=== PATIENT | female | born 1955 | race Caucasian/White ===

== ENCOUNTER 2023-12-04 16:18 | Inpatient (IN) | payer MEDICARE, BC, SELFPAY ==
[2023-12-04] VITALS (12 sets, daily range): BP systolic 117–142; BP diastolic 54–80; BMI 31.5
[2023-12-04 11:40] LABS: % Basophils 0.3 % (0-2); % Immature Granulocytes 0.8 % (0-0.5); % Lymphocytes 2.6 % (20.5-51.1); % Monocytes 6.8 % (1.7-9.3); % Neutrophils 89.5 % (42.2-75.2); Absolute Basophils 0.1 10^3/uL (0-0.2); Absolute Immature Granulocytes 0.2 10^3/uL (0-0.05); Absolute Lymphocytes 0.6 10^3/uL (1.2-3.4); Absolute Monocytes 1.6 10^3/uL (0.1-0.6); Absolute Neutrophils 20.7 10^3/uL (1.4-6.5); Hematocrit 37.5 % (37.0-47.0); Hemoglobin 13.6 g/dL (12.0-16.0); Mean Corp Hgb Conc. 36.3 g/dL (33.0-37.0); Mean Corpuscular Hgb 32.4 pg (27.0-31.0); Mean Corpuscular Volume 89.3 fL (81.0-99.0); Mean Platelet Volume 11.8 fL (7.4-10.4); Nucleated Red Blood Cells % 0 %; Platelet Count 174 10^3/uL (130-400); Red Cell Dist. Width 11.7 % (11.5-14.5); White Blood Cell Count 23.1 10^3/uL (4.8-10.8)
[2023-12-04 11:54] LABS: ALT (SGPT) 47 U/L (0-35); AST (SGOT) 54 U/L (14-36); Albumin 4.1 g/dl (3.5-5.0); Alkaline Phosphatase 108 U/L (38-126); Blood Urea Nitrogen 18 mg/dl (7-17); Calcium 8.7 mg/dl (8.4-10.2); Carbon Dioxide 21 mmol/L (22-30); Chloride 96 mmol/L (98-107); Glucose 210 mg/dl (70-99); Lipase 157 U/L (23-300); Potassium 3.9 mmol/L (3.5-5.1); Sodium 126 mmol/L (135-145); eGFR 45.07
[2023-12-04 11:58] LABS: Lactic Acid 1.4 mmol/L (0.7-2.0)
--- NOTE | 2023-12-04 12:58 | ED.GENMED ---
History of Present Illness
General
Chief Complaint: Abdominal Symptoms
Source: patient
Time Seen by Provider: 12/04/23 12:34
Travel History
Have you had any contact with someone who has COVID-19?: No
Do you have any symptoms of coronavirus? Fever > 100 degrees, chills, cough, shortness of breath, sore throat, loss of taste or smell, muscle aches, or headache?: No
History of Present Illness
History of Present Illness:
68-year-old female presents to the emergency room complaining of a weeks worth of nausea, vomiting, intermittent abdominal pain. Patient has a history of Crohn's disease. She has been taking Stelara without complications therefore had to stop it.
She has not started her new medication yet. Patient has been unable to tolerate much oral intake. She denies any diarrhea. She has had a fever up to 101. Patient was seen at an urgent care and referred to the emergency room. She tested negative
for COVID and flu while at the urgent care.
Phy Exam
Physical Exam
Physical Exam:
General: Awake, Alert, Oriented X3. No acute distress.
Vitals: unremarkable
Head: Atraumatic
Eyes: Pupils equal, EOMI
Throat: Airway intact, no exudates mildly dehydrated
Neck: Trachea midline
Lungs: Clear and equal b/l
Heart: Regular rate, no murmurs
Abd: Soft, no significant tenderness to palpation, No pulsatile mass
Neuro: Nonfocal
Skin: Warm, dry, no rash
Extremities: pulses equal b/l, no edema
Course
Orders/Labs/Results
Orders:
Orders
12/04/23 11:23
Complete Blood Count/With Diff Urgent
Comprehensive Metabolic Panel Urgent
Lactic Acid Urgent
Lipase Urgent
12/04/23 12:55
0.9% Sodium Chloride 500 ml [Nss] 500 ml IV BOLUS
12/04/23 12:57
CT Abd/pel Without Iv Or Oral Urgent
Comment:
Reason For Exam: abd pain, n/v WBC 22, hx of Crohn's
12/04/23 13:18
Osmolality, Random Urine Urgent
Date Specimen was Collected: 12/04/23
Time Specimen was Collected: 13:16
Urinalysis Reflex To Culture Urgent
Date Specimen was Collected: 12/04/23
Time Specimen was Collected: 13:16
Urine Microscopic Reflex Cult Urgent
Urine Sodium Urgent
Date Specimen was Collected: 12/04/23
Time Specimen was Collected: 13:16
Urine Culture Urgent
[facility] Source: U
Specimen Description:
Date Specimen was Collected: 12/04/23
Time Specimen was Collected: 13:16
12/04/23 14:13
CefTRIAXone [Rocephin] 1,000 mg IV NOW STA
12/04/23 15:06
Gentamicin Sulfate [Gentamicin] 120 mg 0.9% Sodium Chloride [Nss] 50 ml IV NOW
12/04/23 15:57
Admit/Transfer Patient As Directed
Co-Sign Provider:
Level of Care: Inpatient admission
Assign to:: Medical/Surgical
Physician / Group: debbie cordova
Diagnosis: ureteral stones
Reason for Hospitalization: ureteral stone
Expected length of stay greater than two midnights?: Yes
ELOS- Estimated Length of Stay in days: 3
I certify the patient meets the requirements for IP care: Yes
12/04/23 15:58
Code Status As Directed
Resuscitation Status: Full Code
12/04/23 16:16
Dexamethasone Sod Phosphate [Decadron] 20 mg .ROUTE .STK-MED ONE
Lidocaine HCl/Pf [Xylocaine-Mpf 1% Vial] 50 mg .ROUTE .STK-MED ONE
Ondansetron Injectable [Zofran] 4 mg .ROUTE .STK-MED ONE
Propofol [Diprivan] 20 ml .ROUTE .STK-MED
12/04/23 16:45
Blood Culture Q30M
[facility] Source: Blood/Venous
Specimen Description:
12/04/23 17:10
0.9% Sodium Chloride 1000 ml [Nss] 1,000 ml IV 80 mls/hr
Acetaminophen [Tylenol] 650 mg PO Q4HPRN PRN
12/04/23 17:10
Activity As Directed
Activity Level: As Tolerated
Pneumatic Compression Sleeves As Directed
Type: Knee high
Strain Urine As Directed
Vital Signs As Directed
Frequency: Per unit guidelines
DX Deep Vein Thrombosis Video Routine
12/04/23 18:31
Blood Culture Q30M
[facility] Source: Blood/Venous
Specimen Description:
12/04/23 21:00
BMP [Basic Metabolic Panel] Routine
12/05/23 06:00
Complete Blood Count/No Diff IN AM
Comprehensive Metabolic Panel IN AM
Hemoglobin A1c [Glycohemoglobin (HgbA1c)] IN AM
12/05/23 08:00
Atorvastatin [Lipitor] 10 mg PO DAILY
Bupropion(24Hr)Extended Releas [WELLBUTRIN XL (24 hour extended release)] 150 mg PO DAILY
Pantoprazole [Protonix] 40 mg PO DAILY
Sertraline HCl [Zoloft] 25 mg PO DAILY
Valacyclovir HCl [Valtrex] 500 mg PO DAILY
12/05/23 16:00
CefTRIAXone [Rocephin] 1,000 mg IV Q24H
12/06/23 06:00
Complete Blood Count/No Diff IN AM
Comprehensive Metabolic Panel IN AM
12/07/23 06:00
Complete Blood Count/No Diff IN AM
Comprehensive Metabolic Panel IN AM
12/08/23 06:00
Complete Blood Count/No Diff IN AM
Comprehensive Metabolic Panel IN AM
12/09/23 06:00
Complete Blood Count/No Diff IN AM
Comprehensive Metabolic Panel IN AM
Abnormal Lab Results
12/04/23 12/04/23
11:23 13:18
WBC 23.1 H 10^3/uL
(4.8-10.8)
MCH 32.4 H pg
(27.0-31.0)
MPV 11.8 H fL
(7.4-10.4)
Abs Immat Gran (auto) 0.2 H 10^3/uL
(0-0.05)
Absolute Neuts (auto) 20.7 H 10^3/uL
(1.4-6.5)
Absolute Lymphs (auto) 0.6 L 10^3/uL
(1.2-3.4)
Absolute Monos (auto) 1.6 H 10^3/uL
(0.1-0.6)
Immature Gran % 0.8 H %
(0-0.5)
Neutrophils % 89.5 H %
(42.2-75.2)
Lymphocytes % 2.6 L %
(20.5-51.1)
Sodium 126 L mmol/L
(135-145)
Chloride 96 L mmol/L
(98-107)
Carbon Dioxide 21 L mmol/L
(22-30)
BUN 18 H mg/dl
(7-17)
Creatinine 1.3 H mg/dL
(0.6-1.0)
Glucose 210 H mg/dl
(70-99)
Total Bilirubin 2.0 H mg/dl
(0.2-1.3)
AST 54 H U/L
(14-36)
ALT 47 H U/L
(0-35)
Urine Ketones 1+ A
(Negative)
Ur Occult Blood Reflex 3+ A
(Negative)
Urine Bilirubin 1+ A
(Negative)
Urine Urobilinogen 3+ A
(Neg - 1+)
Leukocyte Esterase Rfl 2+ A
(Negative)
Urine WBC (Reflex) >100 A /HPF
(0-5)
Urine Sodium 23 L mmol/L
(30-90)
Urine Albumin (Reflex) 1+ A
(Neg - Trace)
12/04/23 11:23
12/04/23 11:23
Vital Signs
Initial and Last Documented VS:
Initial Vital Signs
Temp Pulse Resp BP Pulse Ox
99.0 F 100 16 125/80 98
12/04/23 11:10 12/04/23 11:10 12/04/23 11:10 12/04/23 11:10 12/04/23 11:10
Last Documented Vital Signs
Temp Pulse Resp BP Pulse Ox
100.7 F H 90 18 142/73 95
12/04/23 18:19 12/04/23 18:19 12/04/23 18:19 12/04/23 18:19 12/04/23 18:19
MDM/Problems Addressed
Differential Diagnosis Includes:
UTI, Crohn's exacerbation, kidney stone
MDM/Problems Addressed:
Patient presents with fever, abdominal pain, nausea vomiting. Urine is positive for greater than 100 WBCs per high-power field. CBC shows a white count of 23,000. CT shows stone proximal right ureter. Case discussed with Dr. Berry who is
on-call for urology. He will take the patient to the operating room the next at 1 point. Broad-spectrum antibiotics initiated. Patient be admitted to the hospital service.
*Radiology
Radiology exam reviewed: radiology read reviewed
*Pulse Oximetry
Patient hypoxic: no
*Critical Care Note
Total Time (30-74mins, 75-104mins- exclusive of procedures): 35 min
comment:
Critical care statement: A total of 35 minutes of critical care time was provided for this patient. This includes management of unstable vital signs, evaluation of the patient at bedside, reviewing the patient's pertinent medical records, discussion
with consultants, review of old EKGs and review of pertinent medical records. This time with separate from time utilized to perform the aforementioned documented procedures
ED Attending Note
-
Portions of this chart may have been created with voice recognition software.� Occasional wrong word or��sound alike� substitutions may have occurred due to the inherent limitations of voice recognition software.
Discharge Plan
Departure
Patient Disposition: Admit
Date of Disposition: 12/04/23
Time of Disposition: 15:05
Admit to: Med/Surg
Presentation/result/management discussed w/ accepting MD/DO: Hospitalist
Condition: Fair
Discharge Problem:
Kidney stone on right side, Pyelonephritis
Interventions
Interventions:
*Risk Screen - Suicide Last Done: 12/04/23 13:14
*General Assessment Last Done: 12/04/23 13:14
*Neglect/Abuse Screening Last Done: 12/04/23 13:14
ED- Fall Risk Assessment Last Done: 12/04/23 13:14
*ED COVID-19 Vaccine History Last Done: 12/04/23 11:10
*Nursing Disposition Last Done: 12/04/23 16:10
YS-Mjomoz-Pdvkgfiubi Assessment Last Done: 12/04/23 13:14
Discharge Date and Time
Discharge Date/Time: 12/04/23 16:10
[2023-12-04] MEDS: NSS 500 IV (13:13)
[2023-12-04 13:26] LABS: Urine Albumin 1+ (Neg - Trace); Urine Bilirubin 1+ (Negative); Urine Character Slightly Cloudy (Clear); Urine Color Yellow; Urine Glucose Negative (Negative); Urine Ketone 1+ (Negative); Urine Leukocyte 2+ (Negative); Urine Nitrite Negative (Negative); Urine Occult Blood 3+ (Negative); Urine Specific Gravity 1.025 (<1.030); Urine Urobilinogen 3+ (Neg - 1+)
[2023-12-04 13:38] LABS: Osmolality Urine 782 mOsm/kg (300-900)
[2023-12-04 13:44] LABS: Urine Sodium 23 mmol/L (30-90)
[2023-12-04 13:53] LABS: Urine White Cell >100 /HPF (0-5)
[2023-12-04] MEDS: ROCEPHIN 1000 MG IV (15:24)
--- NOTE | 2023-12-04 15:38 | HPS.HSE ---
Addendum entered and electronically signed by Jp Hernández MD 12/05/23 11:34:
I saw and examined the patient.
The SURGICAL FORCE[employer] FABRICATOR or PA's note was reviewed and I agree with the note.
Comment:
Patient is 68 years old female past medical history of Crohn's(on IC and biologics), hyperlipidemia, depression, nephrolithiasis in the past, bladder ulcer fulgurated in the past, presented to the hospital abdominal pain nausea and vomiting
associated with fevers.� Patient has been having abdominal pain moderate intensity and intermittent in nature associated with nausea and vomiting and also had a fever up to 101 Fahrenheit.� She went to urgent care and she was sent over to the ER
hospital.� In the ED, white blood cell count 23,000, creatinine 1.3, lactic acid 1.4, sodium 126, increased LFTs,, urinalysis with WBC more than 100.� CT scan with 4.6 mm calculus in the proximal right ureter.� Urologist consulted.� She was referred
to hospitalist for further evaluation.
Physical exam:
General: Acutely ill but non toxic looking
HEENT: Normocephalic, Atraumatic and Moist Mucous Membranes
Respiratory: Clear to Auscultation; Negative Wheezes, Rales or Rhonchi
Cardiac: Regular Rhythm and S1/S2
GI: Soft, Tender right quadrant and Nondistended
Musculoskeletal: No Clubbing, No Cyanosis and No Edema
Neuro: Awake, Alert and Oriented
Psych: Calm
A/P:
Probable sepsis due to obstructive right ureteral stone with acute kidney injury and hyponatremia and hyperglycemia--> keep n.p.o., IV fluids, IV antibiotics, obtain blood cultures, recheck sodium levels, urology consulted.� Will give further
recommendations based on her clinical course.
Addendum Dictated by:�Jp Hernández MD
Addendum Dictated Date & Time:�12/04/23
Addendum Co-Signer:�Jp Hernández MD
Addendum Co-Sign Date & Time:12/04/231620
Addendum Signed by:�Jp Hernández MD
Addendum Signed Date & Time:�12/04/23 1621
Original Note:
Family Physician
-
Family Physician: * NONE
Chief Complaint
-
abdominal pain, n,v,
History of Present Illness
68-year-old female with past medical history for Crohn's disease, diverticulitis, kidney stones presented to us with epigastric abdominal pain associate with nausea and vomiting since Friday. She had a fever of 101. She was taking Tylenol as
needed with some relief in her symptoms. She was not tolerating any oral intake. Patient was not voiding much. Patient denied dysuria or hematuria. Stated some headache. Denied dizziness or syncopal episode. Patient denied chest pain or short
of breath.
CT with 4.6 mm right ureteral calculus. Patient received dose of antibiotics in the ER. Admitting for further management
Medical History
Past Medical History
Past Medical History: Reports Other
Additional Past Medical History:
Chron's disease
Diverticulitis
Kidney stones
Past Surgical History: Reports Other
Additional Past Surgical History:
Bowel resection
Social History
Tobacco: Non-smoker
Alcohol: None
Drug: None
Personal: Single
Living: Alone
Employment: Retired
Family History
Family History: Not pertinent
Allergies / Home Medications
Allergies reflects when Allergies were last updated in [facility].
Home Medications with original date entered in [facility]
Allergy/Medication List:
Allergies
Allergy/AdvReac Type Severity Reaction Status Date / Time
.paper tape Allergy Unknown Uncoded 12/04/23 11:14
Home Medications
atorvastatin 10 mg tablet 10 mg PO DAILY High Cholesterol 12/04/23
bupropion HCl 150 mg 24 hr tablet, extended release 150 mg PO DAILY Mental Health 12/04/23
cholecalciferol (vitamin D3) 25 mcg (1,000 unit) tablet (Vitamin D3) 25 mcg PO DAILY Supplement 12/04/23
cyanocobalamin (vitamin B-12) 100 mcg tablet (Vitamin B-12) 100 mcg PO DAILY Supplement 12/04/23
denosumab 60 mg/mL subcutaneous syringe (Prolia) 60 mg SC [id number] bone health 12/04/23
esomeprazole magnesium 40 mg capsule,delayed release 40 mg PO DAILY Gastrointestinal Issue 12/04/23
sertraline 25 mg tablet 25 mg PO DAILY Mental Health 12/04/23
ustekinumab 45 mg/0.5 mL subcutaneous solution (Stelara) 90 mg SC . DIRECTED Crohn's disease 12/04/23
valacyclovir 500 mg tablet 500 mg PO DAILY infection prevention 12/04/23
Review of Systems
-
Constitutional: Reports No Symptoms
EENT: Reports No Symptoms
Respiratory: Reports No Symptoms
Cardiac: Reports No Symptoms
Abdomen/GI: Reports Abdominal Pain, Nausea and Vomiting
: Reports No Symptoms
Musculoskeletal: Reports No Symptoms
Skin: Reports No Symptoms
Neurological: Reports No Symptoms
Endocrine: Reports No Symptoms
Hematologic/Lymphatic: Reports No Symptoms
Psych: Reports No Symptoms
Physical Exam
Vital Signs
Vital Signs
Temp Pulse Resp BP Pulse Ox
99.0 F 87 15 140/73 97
12/04/23 11:10 12/04/23 14:45 12/04/23 14:45 12/04/23 13:00 12/04/23 14:45
Physical Exam
General: Well Developed, Well Nourished and No Apparent Distress
HEENT: NormoCephalic, Moist mucous membranes and Atraumatic
Respiratory: Clear
Cardiac: S1/S2 and Regular Rhythm; No Murmur or Rub
GI: Soft, Non Tender, Non Distended and Normal Bowel Sounds; No Organomegaly
Rectal: Deferred by Provider
Musculoskeletal: No Clubbing, No Cyanosis and No Edema
Skin: No Rash
Neuro: AO x 3 and Nonfocal/grossly intact
Psych: Calm
Laboratory Results
-
12/04/23 11:23
12/04/23 11:23
Laboratory Results
Lactic Acid 1.4 mmol/L (0.7-2.0) 12/04/23 11:23
Total Bilirubin 2.0 mg/dl (0.2-1.3) H 12/04/23 11:23
AST 54 U/L (14-36) H 12/04/23 11:23
ALT 47 U/L (0-35) H 12/04/23 11:23
Alkaline Phosphatase 108 U/L (38-126) 12/04/23 11:23
Lipase 157 U/L (23-300) 12/04/23 11:23
Data Reviewed
-
CT Scan: Report Reviewed by me
Lab Data: Labs Reviewed by me
Impression/Plan
-
# Nausea/vomiting/fever and right abdominal pain likely from right ureter calculus
#UTI
-WBC 23.1
-CT abdomen pelvis with 4.6 mm calculus in the proximal right ureter. Secondary obstructive uropathy.Cholelithiasis. No CT evidence of acute cholecystitis. 14 mm localized soft tissue attenuation in the fundal region, likely layering biliary sludge.
Cannot entirely exclude mass. Recommend follow-up nonemergent/elective ultrasound.Mild fatty infiltration of liver.Diverticulosis without acute diverticulitis. No bowel obstruction or bowel wall thickening.Normal appendixFindings suspicious for
right lateral urinary bladder wall diffuse mild thickening. Tiny focus of diminished attenuation along the nondependent margin of the bladder, raising the possibility of gas. Clinical correlation recommended. If indicated, further evaluation may be
considered with cystoscopy. No bladder calculus.
-iv ceftriaxone
-blood culture ordered
-Tylenol prn for fever/pain
-maintain NPO stent by urology
-urology following
# Acute hyponatremia/acute kidney injury likely dehydration
-Sodium 126, BUN 18, creatinine 1.3
-urine sodium is 23
-normal saline continued
-monitor BMP in am
# Hyperglycemia
-No history for diabetes
-Blood sugar in 200s
-Obtain A1c
# Elevated liver enzymes/hyper bili
-Bili 2.0, AST 54 ALT 47
-CT with fatty liver. Cholelithiasis. No CT evidence of acute cholecystitis. 14 mm localized soft tissue attenuation in the fundal region, likely layering biliary sludge. Cannot entirely exclude mass. Recommend follow-up nonemergent/elective
ultrasound.Mild fatty infiltration of liver.Diverticulosis without acute diverticulitis.
-ctm
# History of Crohn's disease
-Stelara on hold
# Hyperlipidemia
-Statin continued
# Anxiety
-Bupropion continued
-Sertraline continued
# GERD
-Esomeprazole continued
# Osteoporosis
-On Prolia
# DVT prophylaxis
-SCDs
# CODE STATUS
-Full code
[2023-12-04] MEDS: GENTAMICIN 53 MG IV (15:52)
--- NOTE | 2023-12-04 15:54 | CON.MD ---
Consultation - Medical
-
see dictated note
pt with remote gu hx of stone/ recent gu hx of fulguration of bladder ulcer at [facility]
presents with flank pain- fever at home and elevated wbc
ua +
ct shows obstructing prox right ureteral stone and bladder thickening (pt reports recent cysto at [facility] negative for tumor)
pt currently HD stable
reviewed options
ivf/antibx and OR for stent
discussed risks, benefits, alternatives and disabilities
--- NOTE | 2023-12-04 15:56 | HP.FOC2 ---
Addendum entered and electronically signed by Jp Hernández MD 12/04/23 16:21:
I saw and examined the patient.
The ANESTHESIOLOGY RESIDENT or PA's note was reviewed and I agree with the note.
Comment:
Patient is 68 years old female past medical history of Crohn's(on IC and biologics), hyperlipidemia, depression, nephrolithiasis in the past, bladder ulcer fulgurated in the past, presented to the hospital abdominal pain nausea and vomiting
associated with fevers. Patient has been having abdominal pain moderate intensity and intermittent in nature associated with nausea and vomiting and also had a fever up to 101 Fahrenheit. She went to urgent care and she was sent over to the ER
hospital. In the ED, white blood cell count 23,000, creatinine 1.3, lactic acid 1.4, sodium 126, increased LFTs,, urinalysis with WBC more than 100. CT scan with 4.6 mm calculus in the proximal right ureter. Urologist consulted. She was referred
to hospitalist for further evaluation.
Physical exam:
General: Acutely ill but non toxic looking
HEENT: Normocephalic, Atraumatic and Moist Mucous Membranes
Respiratory: Clear to Auscultation; Negative Wheezes, Rales or Rhonchi
Cardiac: Regular Rhythm and S1/S2
GI: Soft, Tender right quadrant and Nondistended
Musculoskeletal: No Clubbing, No Cyanosis and No Edema
Neuro: Awake, Alert and Oriented
Psych: Calm
A/P:
Sepsis due to obstructive right ureteral stone with acute kidney injury and hyponatremia and hyperglycemia--> keep n.p.o., IV fluids, IV antibiotics, obtain blood cultures, recheck sodium levels, urology consulted. Will give further recommendations
based on her clinical course.
Original Note:
Focused History & Physical
Chief Complaint
HPI:
Chief Complaint: stone and UTI
HPI / Indication for Planned Procedure:
pt with remote hx of stones
in sep had bladder ulcer fulgurated at [facility] for pain- believed combo of IC and biologics for crohn's
now with flank pain/fever/elevated wbc and obstructing stone with + UA
Relevant Past Medical History: Other (crohn's- diverticulitis- IC/bladder ulcer- kidney stones- colon resection- jaw surgery for infx- c section- cysto and fulguration)
Relevant Social History: Negative
Relevant Family History: Negative
Relevant Past Surgical History: Positive for (see above)
Review of Systems
Review of Pertinent Systems: All Systems Negative Except for the Following Positives (+ fever, nasuea)
Medication
See Medication form for detailed medications: Yes
Medication List (including Herbals & OTC):
atorvastatin 10 mg tablet 10 mg PO DAILY High Cholesterol 12/04/23
bupropion HCl 150 mg 24 hr tablet, extended release 150 mg PO DAILY Mental Health 12/04/23
cholecalciferol (vitamin D3) 25 mcg (1,000 unit) tablet (Vitamin D3) 25 mcg PO DAILY Supplement 12/04/23
cyanocobalamin (vitamin B-12) 100 mcg tablet (Vitamin B-12) 100 mcg PO DAILY Supplement 12/04/23
denosumab 60 mg/mL subcutaneous syringe (Prolia) 60 mg SC [id number] bone health 12/04/23
esomeprazole magnesium 40 mg capsule,delayed release 40 mg PO DAILY Gastrointestinal Issue 12/04/23
sertraline 25 mg tablet 25 mg PO DAILY Mental Health 12/04/23
ustekinumab 45 mg/0.5 mL subcutaneous solution (Stelara) 90 mg SC . DIRECTED Crohn's disease 12/04/23
valacyclovir 500 mg tablet 500 mg PO DAILY infection prevention 12/04/23
Medications Reviewed: Yes
Allergies and Reactions
Patient has Allergies: Yes
Noted Allergies and Reactions:
Allergy/AdvReac Type Severity Reaction Status Date / Time
.paper tape Allergy Unknown Uncoded 12/04/23 11:14
Pertinent Physical Exam
All Other Systems: Negative
Head/Neck: Normal
Lungs: Normal
Heart: Normal
Abdomen: Normal
Extremities: Normal
Neurological: Normal
Diagnosis / Assessment
stone/ UTI
Plan / Procedure
for cysto and stent
Anesthesia/Sedation to be done by Anesthesia Provider: Yes
--- NOTE | 2023-12-04 17:13 | W.IMMPOSTOP ---
Surgical Immed Post Op Note
-
Primary Surgeon:
shawna
Assisting Surgeon:
Pre-op Diagnosis:
uti/obstructing stone
Post-op Diagnosis:
same
Procedure Performed:
cysto/right ureteral stent
Anesthesia Type:
gen
Specimen / Cultures:
ucx
Estimated Blood Loss:
2cc
Complications:
none
Operative Findings:
diffuse errythema of right side of bladder- also somewhat distorted trigone
cx sent from cystoscopy
on placement of stnet- moderate amount of purulent debris under high pressure expressed
stent placed
to pacu in stable condition
[2023-12-04] MEDS: NSS 1000 IV ×2 (17:46→17:48)
[2023-12-04 18:36] LABS: Urine Albumin 1+ (Neg - Trace); Urine Bilirubin 1+ (Negative); Urine Character Clear (Clear); Urine Color Yellow; Urine Glucose Negative (Negative); Urine Ketone Trace (Negative); Urine Leukocyte 2+ (Negative); Urine Nitrite Negative (Negative); Urine Occult Blood 4+ (Negative); Urine Urobilinogen 3+ (Neg - 1+)
[2023-12-04] MEDS: TYLENOL 650 MG PO (18:40)
[2023-12-04 18:43] LABS: Urine Red Blood Cell 50-60 /HPF (0-2); Urine Squamous Cell 0-2 /LPF (Few); Urine White Cell >100 /HPF (0-5); Urine White Cell Cast >15 /LPF
[2023-12-04 18:44] LABS: Urine Bacteria Many (Negative)
--- NOTE | 2023-12-04 18:44 | PTCARENOTE ---
pt admitted to room 2100 from the PACU at 1815. pt arrived via bed. daughter at bedside. pt alert, oriented to room ,call miranda and plan of care. Temp 100.7-medicated with Tylenol per MAR. denies nausea. tolerating sips of water and ice chips.
pt instructed to call for assistance to get out of bed and the need to strain all urine. report to oncoming shift.
[2023-12-04] MEDS: FLOMAX 0.400000000000000022 MG PO (19:32)
[2023-12-04] MEDS: DETROL LA 4 MG PO (19:32)
[2023-12-04 21:31] LABS: Blood Urea Nitrogen 17 mg/dl (7-17); Calcium 8.1 mg/dl (8.4-10.2); Carbon Dioxide 21 mmol/L (22-30); Chloride 100 mmol/L (98-107); Estimated Creatinine Clearance 46 ml/min; Glucose 273 mg/dl (70-99); Sodium 129 mmol/L (135-145); eGFR 55.07
[2023-12-05] MEDS: NSS 1000 IV ×2 (00:06→06:41)
[2023-12-05] MEDS: Pyridium 100 MG PO ×3 (00:07→16:26)
[2023-12-05 03:40] VITALS: BP 148/83
[2023-12-05 05:50] LABS: Hematocrit 35.7 % (37.0-47.0); Hemoglobin 12.6 g/dL (12.0-16.0); Mean Corp Hgb Conc. 35.3 g/dL (33.0-37.0); Mean Corpuscular Hgb 31.9 pg (27.0-31.0); Mean Corpuscular Volume 90.4 fL (81.0-99.0); Mean Platelet Volume 12.3 fL (7.4-10.4); Platelet Count 155 10^3/uL (130-400); Red Blood Cell Count 3.95 10^6/uL (4.20-5.40); Red Cell Dist. Width 11.7 % (11.5-14.5); White Blood Cell Count 9.6 10^3/uL (4.8-10.8)
[2023-12-05 06:18] LABS: ALT (SGPT) 46 U/L (0-35); AST (SGOT) 40 U/L (14-36); Albumin 3.5 g/dl (3.5-5.0); Alkaline Phosphatase 108 U/L (38-126); Blood Urea Nitrogen 17 mg/dl (7-17); Calcium 8.3 mg/dl (8.4-10.2); Carbon Dioxide 23 mmol/L (22-30); Chloride 104 mmol/L (98-107); Estimated Creatinine Clearance 56 ml/min; Glucose 207 mg/dl (70-99); Potassium 4.4 mmol/L (3.5-5.1); Sodium 138 mmol/L (135-145); Total Bilirubin 0.7 mg/dl (0.2-1.3); Total Protein 6.2 g/dl (6.3-8.2); eGFR > 60.00
--- NOTE | 2023-12-05 07:08 | W.PN.URO.CBU ---
Today's Communication / Plan
-
await ucx results
Assessment / Plan
-
stone and UTI
s/p stent
pt doing well
no signs of sepsis
UOOB/regular diet
await ucx results
when discharged- should go home on appropriate pain med and antibx- flomax 0.4mgqday/pyridium 100mg bid and gemtesa 1x per day(samples given)
should call dr matos after discharge to schedule appointment to discuss stone surgery
Diagnosis
-
Date of Service: December 05, 2023
-
Patient Diagnosis:
stone
UTI
chronic cystitis/ IC
Post Op Day:
right ureteral stent 12/03
Subjective
-
pt feels good
little bladder bother- urine clear
no fevers- wbc normalized
Objective
-
Vital Signs
Temp Pulse Resp BP Pulse Ox
97.3 F 67 16 148/83 97
12/05/23 03:40 12/05/23 03:40 12/05/23 03:40 12/05/23 03:40 12/05/23 03:40
Intake and Output
12/04/23 12/05/23 12/06/23
06:59 06:59 06:59
Intake Total 500 / 500
Output Total 1650 / 1650
Balance -1150 / -1150
Intake:
Oral fluids 400 / 400
IV fluids (Total) 100 / 100
normosol 100 / 100
Output:
Urine, Voided 1650 / 1650
Laboratory Results
12/05/23 05:02
12/05/23 05:02
Review of Systems
-
Constitutional: Fatigue
Respiratory: No Symptoms
Cardiac: No Symptoms
Abdomen/GI: No Symptoms
: Frequency
Physical Exam
-
General - no acute distress
Abdomen - soft, non-tender
--- NOTE | 2023-12-05 07:58 | W.PN.UPDATE ---
Addendum entered and electronically signed by Jp Hernández MD 12/05/23 08:01:
Correction-->Update from [facility] yesterday on 12/04/2023.
Original Note:
Update Note
Progress Note Update
Update from [facility] yesterday on 12/05/2023.
I saw and examined the patient.
The PRODUCT SUPPORT SALES REPRESENTATIVE or PA's note was reviewed and I agree with the note.
Comment:
Patient is 68 years old female past medical history of Crohn's(on IC and biologics), hyperlipidemia, depression, nephrolithiasis in the past, bladder ulcer fulgurated in the past, presented to the hospital abdominal pain nausea and vomiting
associated with fevers.� Patient has been having abdominal pain moderate intensity and intermittent in nature associated with nausea and vomiting and also had a fever up to 101 Fahrenheit.� She went to urgent care and she was sent over to the ER
hospital.� In the ED, white blood cell count 23,000, creatinine 1.3, lactic acid 1.4, sodium 126, increased LFTs,, urinalysis with WBC more than 100.� CT scan with 4.6 mm calculus in the proximal right ureter.� Urologist consulted.� She was referred
to hospitalist for further evaluation.
Physical exam:
General: Acutely ill but non toxic looking
HEENT: Normocephalic, Atraumatic and Moist Mucous Membranes
Respiratory: Clear to Auscultation; Negative Wheezes, Rales or Rhonchi
Cardiac: Regular Rhythm and S1/S2
GI: Soft, Tender right quadrant and Nondistended
Musculoskeletal: No Clubbing, No Cyanosis and No Edema
Neuro: Awake, Alert and Oriented
Psych: Calm
A/P:
Sepsis due to obstructive right ureteral stone with acute kidney injury and hyponatremia and hyperglycemia--> keep n.p.o., IV fluids, IV antibiotics, obtain blood cultures, recheck sodium levels, urology consulted.� Will give further recommendations
based on her clinical course.
Addendum Dictated by:�Jp Hernández MD
Addendum Dictated Date & Time:�12/04/23
Addendum Co-Signer:�Jp Hernández MD
Addendum Co-Sign Date & Time:12/04/231620
Addendum Signed by:�Jp Hernández MD
Addendum Signed Date & Time:�12/04/231620
--- NOTE | 2023-12-05 08:00 | W.PN.HOSP.TC ---
Today's Communication/Plan
-
Continue IV antibiotics. Follow-up cultures. Discharge planning in progress
Assessment / Plan
Assessment / Plan
Physical exam:
General: Acutely ill but non toxic looking
HEENT: Normocephalic, Atraumatic and Moist Mucous Membranes
Respiratory: Clear to Auscultation; Negative Wheezes, Rales or Rhonchi
Cardiac: Regular Rhythm and S1/S2
GI: Soft, Tender right quadrant and Nondistended
Musculoskeletal: No Clubbing, No Cyanosis and No Edema
Neuro: Awake, Alert and Oriented
Psych: Calm
A/P:
# Nausea/vomiting/fever and right abdominal pain likely from right ureter calculus
#UTI
#Ruled out sepsis
-WBC 23.1-->9.6
-Status post ureteral stent and stone management as outpatient
-Follow-up cultures for 24 hours and plan to discharge tomorrow
-Appreciated urology consult
-Continue IV antibiotic
-Stop IV fluids
Prior to today:
-CT abdomen pelvis with 4.6 mm calculus in the proximal right ureter. Secondary obstructive uropathy.Cholelithiasis. No CT evidence of acute cholecystitis. 14 mm localized soft tissue attenuation in the fundal region, likely layering biliary sludge.
Cannot entirely exclude mass. Recommend follow-up nonemergent/elective ultrasound.Mild fatty infiltration of liver.Diverticulosis without acute diverticulitis. No bowel obstruction or bowel wall thickening.Normal appendixFindings suspicious for
right lateral urinary bladder wall diffuse mild thickening. Tiny focus of diminished attenuation along the nondependent margin of the bladder, raising the possibility of gas. Clinical correlation recommended. If indicated, further evaluation may be
considered with cystoscopy. No bladder calculus.
-iv ceftriaxone
-blood culture ordered
-Tylenol prn for fever/pain
-maintain NPO stent by urology
-urology following
# Acute hyponatremia/acute kidney injury likely dehydration
-Sodium 126, BUN 18, creatinine 1.3--> sodium 138 and creatinine 0.9 today
-Stop IV fluid
Prior to today:
-urine sodium is 23
-normal saline continued
-monitor BMP in am
# Hyperglycemia-->DM
-Borderline diabetes mellitus type 2, hemoglobin A1c 6.6
-Lifestyle changes modifications
-Might consider outpatient oral hypoglycemics if lifestyle changes not successful.
-Low coverage insulin sliding scale and diabetes education.
Prior to today:
-No history for diabetes
-Blood sugar in 200s
-Obtain A1c
# Elevated liver enzymes/hyper bili
-Improving
-Continue to follow-up as outpatient
Prior to today:
-Bili 2.0, AST 54 ALT 47
-CT with fatty liver. Cholelithiasis. No CT evidence of acute cholecystitis. 14 mm localized soft tissue attenuation in the fundal region, likely layering biliary sludge. Cannot entirely exclude mass. Recommend follow-up nonemergent/elective
ultrasound.Mild fatty infiltration of liver.Diverticulosis without acute diverticulitis.
-ctm
# History of Crohn's disease
-Stelara on hold
# Hyperlipidemia
-Statin place on hold and continue as outpatient upon discharge
# Anxiety
-Bupropion continued
-Sertraline continued
# GERD
-Esomeprazole continued
# Osteoporosis
-On Prolia
# DVT prophylaxis
-SCDs
# CODE STATUS
-Full code
Anticipated Discharge: Within 24 hours
Subjective/Interval History
-
Date of Service: December 05, 2023
Patient feels better today. Afebrile.
Objective Data
-
Labs:
Laboratory Results
12/04/23 12/05/23
21:05 05:02
WBC 9.6
Hgb 12.6
Hct 35.7 L
Plt Count 155
Sodium 129 L 138 D
Potassium 4.0 4.4
Chloride 100 104
Carbon Dioxide 21 L 23
BUN 17 17
Creatinine 1.1 H 0.9
Glucose 273 H 207 H
Calcium 8.1 L 8.3 L
Total Bilirubin 0.7 D
AST 40 H
ALT 46 H
Alkaline Phosphatase 108
Vital Signs:
Vital Signs
Temp Pulse Resp BP Pulse Ox
97.3 F 67 16 148/83 97
12/05/23 03:40 12/05/23 03:40 12/05/23 03:40 12/05/23 03:40 12/05/23 03:40
I&O
12/04/23 12/05/23 12/06/23
06:59 06:59 06:59
Intake Total 500 / 500
Output Total 1650 / 1650
Balance -1150 / -1150
Review of Systems
-
All other systems: Reviewed and negative
[2023-12-05 08:21] VITALS: BP 119/74
[2023-12-05] MEDS: PROTONIX 40 MG PO (08:36)
[2023-12-05] MEDS: FLOMAX 0.400000000000000022 MG PO (08:36)
[2023-12-05] MEDS: WELLBUTRIN XL (24 hour extended release) 150 MG PO (08:36)
[2023-12-05] MEDS: LIPITOR 10 MG PO (08:36)
[2023-12-05] MEDS: DETROL LA 4 MG PO (08:36)
[2023-12-05] MEDS: ZOLOFT 25 MG PO (08:36)
[2023-12-05] MEDS: VALTREX 500 MG PO (08:37)
[2023-12-05] MEDS: CILOXAN 0.3% OPHTHALMIC SOLUTION 1 DROP OPHTH ×4 (09:12→20:38)
[2023-12-05 09:19] LABS: Glycohemoglobin (HgbA1c) 6.6 % (4.0-5.6)
--- NOTE | 2023-12-05 14:13 | CM ---
Initial assessment completed with patient who lives alone in a carriage house with no stairs to enter, 1 floor and a loft. B/B, laundry on . 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 No DME or services. No psychiatric history. Support system is 2
daughters, 1 son-in-law and her boyfriend. Pharmacy is [facility] in [place] and PCP is Dr. Lesa Mae in [facility]. Looking for new PCP in area, list provided. Anticipate No Needs at discharge.
[2023-12-05 15:25] VITALS: BP 136/69
[2023-12-05] MEDS: STERILE WATER FOR INJECTION 10 ML IV (16:26)
[2023-12-05] MEDS: ROCEPHIN 1000 MG IV (16:26)
[2023-12-05 17:41] LABS: Glucose - Point of Care 159 mg/dl (70-99)
[2023-12-05] MEDS: NOVOLOG FLEXPEN-LOW RESISTANCE 1 UNITS SC (18:03)
[2023-12-05 21:41] LABS: Glucose - Point of Care 158 mg/dl (70-99)
[2023-12-05 23:10] VITALS: BP 116/62
[2023-12-06] MEDS: Pyridium 100 MG PO ×2 (00:36→08:18)
[2023-12-06] MEDS: CILOXAN 0.3% OPHTHALMIC SOLUTION 1 DROP OPHTH ×3 (00:37→08:19)
[2023-12-06 07:13] LABS: Glucose - Point of Care 110 mg/dl (70-99)
[2023-12-06 07:32] VITALS: BP 145/75
[2023-12-06] MEDS: NOVOLOG FLEXPEN-LOW RESISTANCE SC ×2 (08:17→12:19)
[2023-12-06] MEDS: FLOMAX 0.400000000000000022 MG PO (08:18)
[2023-12-06] MEDS: PROTONIX 40 MG PO (08:18)
[2023-12-06] MEDS: LIPITOR 10 MG PO (08:18)
[2023-12-06] MEDS: WELLBUTRIN XL (24 hour extended release) 150 MG PO (08:18)
[2023-12-06] MEDS: DETROL LA 4 MG PO (08:18)
[2023-12-06] MEDS: VALTREX 500 MG PO (08:18)
[2023-12-06] MEDS: ZOLOFT 25 MG PO (08:19)
--- NOTE | 2023-12-06 08:39 | W.PN.HOSP.TC ---
Today's Communication/Plan
-
Discharge planning today.
Assessment / Plan
Assessment / Plan
Physical exam:
General: Acutely ill but non toxic looking
HEENT: Normocephalic, Atraumatic and Moist Mucous Membranes
Respiratory: Clear to Auscultation; Negative Wheezes, Rales or Rhonchi
Cardiac: Regular Rhythm and S1/S2
GI: Soft, Tender right quadrant and Nondistended
Musculoskeletal: No Clubbing, No Cyanosis and No Edema
Neuro: Awake, Alert and Oriented
Psych: Calm
A/P:
# Nausea/vomiting/fever and right abdominal pain likely from right ureter calculus
#UTI
#Ruled out sepsis
-WBC 23.1-->9.6
-Status post ureteral stent and stone management as outpatient
-Follow-up cultures no growth.
-Appreciated urology consult
- Change antibiotics to oral today
-Urology follow-up appreciated. Urology cleared for discharge today
Prior to today:
-CT abdomen pelvis with 4.6 mm calculus in the proximal right ureter. Secondary obstructive uropathy.Cholelithiasis. No CT evidence of acute cholecystitis. 14 mm localized soft tissue attenuation in the fundal region, likely layering biliary sludge.
Cannot entirely exclude mass. Recommend follow-up nonemergent/elective ultrasound.Mild fatty infiltration of liver.Diverticulosis without acute diverticulitis. No bowel obstruction or bowel wall thickening.Normal appendixFindings suspicious for
right lateral urinary bladder wall diffuse mild thickening. Tiny focus of diminished attenuation along the nondependent margin of the bladder, raising the possibility of gas. Clinical correlation recommended. If indicated, further evaluation may be
considered with cystoscopy. No bladder calculus.
-iv ceftriaxone
-blood culture ordered
-Tylenol prn for fever/pain
-maintain NPO stent by urology
-urology following
# Acute hyponatremia/acute kidney injury likely dehydration
-Sodium 126, BUN 18, creatinine 1.3--> sodium 138 and creatinine 0.9
-Stop IV fluid
Prior to today:
-urine sodium is 23
-normal saline continued
-monitor BMP in am
# Hyperglycemia-->DM
-Borderline diabetes mellitus type 2, hemoglobin A1c 6.6
-Lifestyle changes modifications
-Might consider outpatient oral hypoglycemics if lifestyle changes not successful.
-Low coverage insulin sliding scale and diabetes education.
Prior to today:
-No history for diabetes
-Blood sugar in 200s
-Obtain A1c
# Elevated liver enzymes/hyper bili
-Improving
-Continue to follow-up as outpatient
Prior to today:
-Bili 2.0, AST 54 ALT 47
-CT with fatty liver. Cholelithiasis. No CT evidence of acute cholecystitis. 14 mm localized soft tissue attenuation in the fundal region, likely layering biliary sludge. Cannot entirely exclude mass. Recommend follow-up nonemergent/elective
ultrasound.Mild fatty infiltration of liver.Diverticulosis without acute diverticulitis.
-ctm
# History of Crohn's disease
-Stelara on hold
# Hyperlipidemia
-Statin place on hold and continue as outpatient upon discharge
# Anxiety
-Bupropion continued
-Sertraline continued
# GERD
-Esomeprazole continued
# Osteoporosis
-On Prolia
# DVT prophylaxis
-SCDs
# CODE STATUS
-Full code
Anticipated Discharge: Today
Subjective/Interval History
-
Date of Service: December 06, 2023
Patient no new complaints. Afebrile
Objective Data
-
Vital Signs:
Vital Signs
Temp Pulse Resp BP Pulse Ox
98.0 F 75 14 145/75 95
12/06/23 07:32 12/06/23 07:32 12/06/23 07:32 12/06/23 07:32 12/06/23 07:32
I&O
12/05/23 12/06/23 12/07/23
06:59 06:59 06:59
Intake Total 500 / 500 960 / 960
Output Total 1650 / 1650
Balance -1150 / -1150 960 / 960
--- NOTE | 2023-12-06 09:57 | W.PN.URO.CBU ---
Today's Communication / Plan
-
Cleared for discharge from standpoint
Discussed with Hospitalist the need for antibiotic
Assessment / Plan
-
stone and UTI: blood and urine cultures unrevealing
s/p stent
pt doing well
no signs of sepsis
UOOB/regular diet
when discharged- should go home on appropriate pain med and antibx- flomax 0.4mgqday/pyridium 100mg bid and gemtesa 1x per day(samples given)
should call dr matos after discharge to schedule appointment to discuss stone surgery
Diagnosis
-
Date of Service: December 06, 2023
-
Patient Diagnosis:
stone
UTI
chronic cystitis/ IC
Post Op Day:
right ureteral stent 12/03
Subjective
-
Feels well
Voiding w/o issues
No flank pain
Objective
-
Vital Signs
Temp Pulse Resp BP Pulse Ox
98.0 F 75 14 145/75 95
12/06/23 07:32 12/06/23 07:32 12/06/23 07:32 12/06/23 07:32 12/06/23 07:32
Intake and Output
12/05/23 12/06/23 12/07/23
06:59 06:59 06:59
Intake Total 500 / 500 960 / 960
Output Total 1650 / 1650
Balance -1150 / -1150 960 / 960
Intake:
Oral fluids 400 / 400 960 / 960
IV fluids (Total) 100 / 100
normosol 100 / 100
Output:
Urine, Voided 1650 / 1650
Other:
Number of approximated MODERATE 2
amounts of urine
Laboratory Results
12/05/23 05:02
12/05/23 05:02
Review of Systems
-
Constitutional: No Symptoms
Respiratory: No Symptoms
Cardiac: No Symptoms
Abdomen/GI: No Symptoms
: No Symptoms
Neurological: No Symptoms
Physical Exam
-
General - well developed, well nourished, no acute distress
Abdomen - soft, non-tender no CVAT
Skin - warm & dry with no rash
Neuro - AOx3, no motor deficits
--- NOTE | 2023-12-06 11:08 | W.DCSUMMARY ---
Discharge Summary
Discharge Data
Date of Admission: 12/04/23
Date of Discharge: 12/06/23
-
Pending Results: No
Hospital Course
Patient 68 years old female with history of Crohn's, nephrolithiasis, interstitial cystitis, presented to the hospital with abdominal pain nausea vomiting and fever. She was found to have obstructing right ureteral stone with suspected UTI and a
white blood cell count of 23,000. Urology consulted. Urology took her to the OR on 12/03 and did a cystoscopy and right ureteral stent and it was described moderate amount of purulent debris during procedure. Patient was kept on IV fluids, IV
antibiotic. Patient had mild right eye conjunctivitis. Her WBC count went down to normal from 23 down to 9.6, she remained afebrile, blood cultures remain no growth, urine culture, interesting, no growth. Urology recommend continue antibiotics
orally as outpatient. Patient also was in renal failure with a creatinine of 1.3 and after hydration went down to 0.9. Urology cleared her for discharge today. She will be discharged in stable condition today.
Discharge duration: 35 minutes
Discharge Plan
-
Patient Disposition: Home (Routine Discharge)
Diet: Low Cholesterol and Diabetic, Carb Controlled
Activity: As tolerated
Driving Restrictions: As prior to admission
Blood Work: Please PCP to order CBC, BMP within 1 week
Instructions: Diabetes and diet
Referrals:
Primary care, provider [Other] (See less than 1 week)
Wyatt Mistry MD [Active] - in one to two weeks
Prescriptions:
New
tamsulosin 0.4 mg Capsule
0.4 mg PO DAILY Qty: 30 0RF
ciprofloxacin HCl 0.3 % Drops
1 drp ophthalmic (eye) Q4H Qty: 2.5 0RF
Rx Instructions:
Apply on right eye for 5 days.
phenazopyridine 100 mg Tablet
100 mg PO Q8 5 Days Qty: 15 0RF
oxycodone 5 mg capsule
5 mg PO Q8H PRN (Reason: severe pain) Qty: 4 0RF
cefuroxime axetil 500 mg Tablet
500 mg PO BID 5 Days Qty: 10 0RF
Gemtesa 75 mg tablet
75 mg PO DAILY Qty: 30 0RF
Continued
cyanocobalamin (vitamin B-12) [Vitamin B-12] 100 mcg Tablet
100 mcg PO DAILY
valacyclovir 500 mg Tablet
500 mg PO DAILY
sertraline 25 mg Tablet
25 mg PO DAILY
cholecalciferol (vitamin D3) [Vitamin D3] 25 mcg (1,000 unit) Tablet
25 mcg PO DAILY
Stelara 45 mg/0.5 mL Solution
90 mg SC . DIRECTED
Prolia 60 mg/mL Syringe
60 mg SC [id number]
atorvastatin 10 mg tablet
10 mg PO DAILY
bupropion HCl 150 mg tablet extended release 24 hr
150 mg PO DAILY
Held
esomeprazole magnesium 40 mg capsule,delayed release(DR/EC)
40 mg PO DAILY
Hold Instructions: Resume on 12/10/23.
Discharge Orders:
Discharge Patient (As Directed); Ordered 12/06/23
Ordered By: Jp Hernández
Discharge Date and Time
Discharge Date/Time: 12/06/23 13:17
--- NOTE | 2023-12-06 11:30 | CM ---
Patient seen at bedside. IMM signed and copy placed on chart. Patient states that she has no needs. CM will continue to follow for discharge planning needs.
Plan; home with no needs.
[2023-12-06] MEDS: CEFTIN 500 MG PO (11:53)
[2023-12-06 12:16] LABS: Glucose - Point of Care 113 mg/dl (70-99)
== END 2023-12-06 13:17 | disposition home or self-care (01) | DRG 660 ==
LOC: 2 SOUTH 16:18
PROVIDERS: Emergency Medicine; Registered Nurse; ADMITTING PHYSICIAN Hospitalist; EMERGENCY PHYSICIAN Emergency Medicine; OTHER PHYSICIAN Specialist
PROC: 0T768DZ Dilation of Right Ureter with Intraluminal Device, Via Natural or Artificial Opening Endoscopic (ICD-10-PCS; 2023-12-04)
DX: N13.6 Pyonephrosis (principal); E87.1 Hypo-osmolality and hyponatremia; K50.90 Crohn's disease, unspecified, without complications; N20.2 Calculus of kidney with calculus of ureter; N17.9 Acute kidney failure, unspecified; K76.0 Fatty (change of) liver, not elsewhere classified; K80.20 Calculus of gallbladder without cholecystitis without obstruction; E78.5 Hyperlipidemia, unspecified; N30.20 Other chronic cystitis without hematuria; F32.A Depression, unspecified; R73.9 Hyperglycemia, unspecified; K21.9 Gastro-esophageal reflux disease without esophagitis; M81.0 Age-related osteoporosis without current pathological fracture; F41.9 Anxiety disorder, unspecified; H10.9 Unspecified conjunctivitis; N30.10 Interstitial cystitis (chronic) without hematuria; Z87.442 Personal history of urinary calculi; Z79.620 Long term (current) use of immunosuppressive biologic; Z87.19 Personal history of other diseases of the digestive system
CPT/HCPCS: 74018; 74176; 76000; 80048; 80053; 81003; 81015; 82962; 83036; 83605; 83690; 83935; 84300; 85025; 85027; 87040; 87086; 96361; 96365; 96375; 99291; C2617

== ENCOUNTER 2023-12-16 06:18 | Day surgery (SDC) | payer BC, SELFPAY ==
[2023-12-16] VITALS (8 sets, daily range): BP systolic 126–155; BP diastolic 66–78; BMI 28.9
[2023-12-16 13:00] LABS: APTT 29.3 Sec (23.4-35.0); INR 1.04; PT 13.4 Sec (11.4-14.6)
[2023-12-21 11:25] LABS: Stone Analysis Mass 25 mg
== END 2023-12-16 14:50 | disposition home or self-care (01) ==
LOC: SDS 06:18
PROVIDERS: ATTENDING PHYSICIAN Specialist
DX: N20.1 Calculus of ureter (principal)
CPT/HCPCS: 52356; 74018; 76000; 82365; 85610; 85730; C1894; C2617; J1580

== ENCOUNTER 2025-04-28 12:42 | Day surgery (SDC) | payer MEDICARE, BC, SELFPAY ==
[2025-04-28 07:34] VITALS: BMI 30.7
[2025-04-28 07:38] VITALS: BP 155/99
[2025-04-28 07:54] VITALS: BP 156/96
--- NOTE | 2025-04-28 08:07 | ED.GENMED ---
History of Present Illness
General
Chief Complaint: Abdominal Pain
Source: patient
Time Seen by Provider: 04/28/25 07:47
History of Present Illness
History of Present Illness:
The patient is a 69-year-old female with a history of Crohns disease and diabetes who presents with abdominal pain, back pain, and nausea. The symptoms initially began on Friday with severe stomach pain and back pain accompanied by nausea, which was
thought to be related to food poisoning. These symptoms subsided but recurred last night around 8:00 PM. The patient describes the back pain as being located in the middle of her back, and it seems to be separate from the stomach discomfort. She has
not been vomiting, just experiencing the urge, and reports constipation but denies any fever, chills, or changes in stool color such as black or bloody stools. The patient finds that lying down exacerbates the pain. No medications have been taken
for these symptoms yet.
Past History
Past History
ED Past Medical History: NIDDM and Other (crohn's, PUD)
ED Past Surgical History: Bowel resection and
Social History
Tobacco: Non-smoker
Alcohol: None
Drug: None
Phy Exam
Physical Exam
Physical Exam:
General: Awake, Alert, Oriented X3. No acute distress.
Vitals: unremarkable
Head: Atraumatic
Eyes: Pupils equal, EOMI, nonicteric
Throat: Airway intact, no exudates
Neck: Trachea midline
Lungs: Clear and equal b/l
Heart: Regular rate, no murmurs
Abd: Soft, tender palpation epigastric region, No pulsatile mass
Neuro: Nonfocal
Skin: Warm, dry, no rash
Extremities: pulses equal b/l, no edema
Course
Orders/Labs/Results
Orders:
Orders
04/28/25 07:37
Electrocardiogram (*1) Urgent
Reason for Study: Abdominal Pain
EKG- Treatment ONCE
04/28/25 08:05
0.9% Sodium Chloride 1000 ml [Nss] 1,000 ml IV BOLUS
HYDROmorphone [Dilaudid] 0.5 mg IV NOW STA
Ondansetron Injectable [Zofran] 4 mg IV NOW STA
US Abdomen Complete/Upper Urgent
Comment:
Reason For Exam: upper abd pain, nausea
04/28/25 08:12
Complete Blood Count/With Diff Urgent
Comprehensive Metabolic Panel Urgent
Lipase Urgent
04/28/25 08:26
Urinalysis Reflex To Culture Urgent
Date Specimen was Collected: 04/28/25
Time Specimen was Collected: 08:20
Urine Microscopic Reflex Cult Urgent
04/28/25 09:27
HYDROmorphone [Dilaudid] 0.5 mg IV NOW STA
04/28/25 12:04
Admit/Transfer Patient As Directed
Co-Sign Provider:
Level of Care: Inpatient admission
Assign to:: Medical/Surgical
Physician / Group: Yoel Epstein
Diagnosis: Acute cholecystitis,
Reason for Hospitalization: Acute cholecystitis,
Expected length of stay greater than two midnights?: Yes
ELOS- Estimated Length of Stay in days: 2
I certify the patient meets the requirements for IP care: Yes
PRN Pain Medication Management As Directed
May give lesser potent ordered pain med per pt: Yes
preference::
Protocol:: Medication orders for pain may be administered in a
manner that supports deferring to patient preference
when the pt is:
- Requesting an ordered lesser potent pain medication.
Least to most potent pain medications are defined
as: acetaminophen < NSAID < tramadol < opioids
(morphine, oxycodone, hydromorphone).
- Requesting a lesser dose of the same medication IF
ORDERED.
- Requesting a less intrusive route of administration
if both routes are prescribed by the provider (PO <
IV).
04/28/25 12:09
Code Status As Directed
Resuscitation Status: Full Code
04/28/25 12:12
Abdomen Xray - 1 View [CR Abdomen - 1 View] Routine
Comment:
Reason For Exam: unable to pass stool
Abnormal Lab Results
04/28/25 04/28/25
08:12 08:26
WBC 12.2 H 10^3/uL
(4.8-10.8)
MCH 31.2 H pg
(27.0-31.0)
MPV 12.4 H fL
(7.4-10.4)
Abs Immat Gran (auto) 0.1 H 10^3/uL
(0-0.05)
Absolute Neuts (auto) 10.0 H 10^3/uL
(1.4-6.5)
Neutrophils % 82.5 H %
(42.2-75.2)
Lymphocytes % 9.8 L %
(20.5-51.1)
Glucose 142 H mg/dl
(70-99)
Calcium 10.4 H mg/dl
(8.4-10.2)
Ur Occult Blood Reflex 2+ A
(Negative)
Urine Bacteria (Reflex) Few A
(Negative)
Urine Albumin (Reflex) 1+ A
(Neg - Trace)
04/28/25 08:12
04/28/25 08:12
Vital Signs
Initial and Last Documented VS:
Initial Vital Signs
Temp Pulse Resp BP Pulse Ox
97.8 F 74 18 155/99 98
04/28/25 07:38 04/28/25 07:38 04/28/25 07:38 04/28/25 07:38 04/28/25 07:38
Last Documented Vital Signs
Temp Pulse Resp BP Pulse Ox
97.8 F 79 15 156/96 90
04/28/25 07:38 04/28/25 07:54 04/28/25 07:54 04/28/25 07:54 04/28/25 08:13
MDM/Problems Addressed
Differential Diagnosis Includes:
The Differential Diagnosis includes, in no particular order and is not limited to:
1. Exacerbation of Crohns disease
2. Peptic ulcer disease
3. Gastroenteritis
4. Intestinal obstruction
5. Pancreatitis
6. Cholecystitis
7. Diverticulitis
8. Irritable bowel syndrome
MDM/Problems Addressed:
The plan involves administration of pain medication, antiemetic for nausea, intravenous fluids, and laboratory investigations. The patient has a scheduled appointment with her comparison shopper tomorrow. Imaging, in the form of a scan, will be
conducted as part of the diagnostic workup today.
Ultrasound shows thickened gallbladder wall which may be related to chronic cholecystitis or perhaps gallbladder underdistention. Patient also noted to have a gallstone and nonspecific common bile duct dilatation. Her exam is suggestive of
cholecystitis as is her presentation so I think this is the most likely cause of her discomfort. I reached out to Dr. Alvarado who is on-call for general surgery. Given her medical history recommends admission to medicine and he will evaluate the
patient later today.
*Radiology
Radiology exam reviewed: radiology read reviewed
*Pulse Oximetry
SaO2: 98
Oxygen Mode of Delivery: Room air
Patient hypoxic: no
*EKG
Interpretation: normal
Heart Rate: 81
Rate: normal
Rhythm: sinus
Thomson: normal axis
Interval: normal interval
QRS Pattern: normal QRS
Ischemia: no ischemia
*Ground Surveillance Systems Operator Interpretation
Rate: normal
Interpretation: normal
Heart Rate: 81
Rhythm: sinus
*Critical Care Note
Total Time (30-74mins, 75-104mins- exclusive of procedures): Not Applicable
ED Attending Note
-
Portions of this chart may have been created with voice recognition software.� Occasional wrong word or��sound alike� substitutions may have occurred due to the inherent limitations of voice recognition software.
Discharge Plan
Departure
Patient Disposition: Admit
Date of Disposition: 04/28/25
Time of Disposition: 11:16
Admit to: Med/Surg
Presentation/result/management discussed w/ accepting MD/DO: Hospitalist
Condition: Fair
Discharge Problem:
Abdominal pain, Cholecystitis
Interventions
Interventions:
*Risk Screen - Suicide Last Done: 04/28/25 07:38
*Neglect/Abuse Screening Last Done: 04/28/25 07:38
[id number] Assessment Last Done: 04/28/25 07:59
[2025-04-28] MEDS: NSS 1000 IV ×2 (08:21→14:22)
[2025-04-28] MEDS: ZOFRAN 4 MG IV (08:22)
[2025-04-28] MEDS: DILAUDID 0.5 MG IV (08:22)
[2025-04-28 08:38] LABS: Hematocrit 43.8 % (37.0-47.0); Hemoglobin 15.3 g/dL (12.0-16.0); Mean Corp Hgb Conc. 34.9 g/dL (33.0-37.0); Mean Corpuscular Volume 89.4 fL (81.0-99.0); Nucleated Red Blood Cells % 0 %; Platelet Count 250 10^3/uL (130-400); Red Cell Dist. Width 12.6 % (11.5-14.5)
[2025-04-28 08:39] LABS: Urine Character Clear (Clear)
[2025-04-28 08:51] LABS: ALT (SGPT) 16 U/L (0-35); AST (SGOT) 21 U/L (14-36); Albumin 4.9 g/dl (3.5-5.0); Alkaline Phosphatase 74 U/L (38-126); Blood Urea Nitrogen 16 mg/dl (7-17); Calcium 10.4 mg/dl (8.4-10.2); Carbon Dioxide 26 mmol/L (22-30); Chloride 102 mmol/L (98-107); Estimated Creatinine Clearance 68 ml/min; Glucose 142 mg/dl (70-99); Lipase 68 U/L (23-300); Potassium 4.7 mmol/L (3.5-5.1); Sodium 138 mmol/L (135-145); Total Protein 7.6 g/dl (6.3-8.2); eGFR > 60.00
[2025-04-28 08:57] LABS: Urine Squamous Cell >30 /LPF (Few)
[2025-04-28 09:00] LABS: Urine Red Blood Cell 0-2 /HPF (0-2)
--- NOTE | 2025-04-28 12:11 | HPS.HSE ---
Family Physician
-
Family Physician: Bryant Lewis
Chief Complaint
-
Nausea/chills/back pain
History of Present Illness
Patient is 69-year-old female with past medical history of Crohn's disease not on any biologic, history of recurrent UTI, bladder ulcer, peptic ulcer disease, hyperlipidemia, depression/anxiety, obesity came to ER with new onset of back pain
associated with nausea starting from Friday. Patient was in her usual state of health and have a history of Crohn's disease diagnosed in 2017. Patient has been started on Stelara and Remicade and due to side effect has been off of it from September
. Patient denies of having any flareup and have 1 regular bowel movement every day. Denies of any associated chronic pain/nausea issue. Patient follows up with [facility] for surveillance. On Friday patient started to
having some nausea and felt to having difficulty with bowel movement, patient was able to have a bowel movement and improvement of symptoms although reoccurred. Patient also having back pain and also some epigastric discomfort as well. Patient
denies of having any previous issues with gallbladder. No reported fever but sensation of chills. No other cardiopulmonary or complaints.
Medical History
Past Medical History
Past Medical History: Reports Other
Additional Past Medical History:
Crohn's disease not on any biologic, history of recurrent UTI, bladder ulcer, peptic ulcer disease, hyperlipidemia, depression/anxiety, obesity
Past Surgical History: Reports Other
Social History
Tobacco: Non-smoker
Alcohol: Occasional
Drug: None
Living: With Family
Employment: Retired
Family History
Family History: Not pertinent
Allergies / Home Medications
Allergies reflects when Allergies were last updated in [facility].
Home Medications with original date entered in [facility]
Allergy/Medication List:
Allergies
Allergy/AdvReac Type Severity Reaction Status Date / Time
.paper tape Allergy Unknown Uncoded 12/16/23 11:49
Home Medications
atorvastatin 10 mg tablet 10 mg PO DAILY High Cholesterol 12/04/23
bupropion HCl 150 mg 24 hr tablet, extended release 150 mg PO DAILY Mental Health 12/04/23
denosumab 60 mg/mL subcutaneous syringe (Prolia) 60 mg SC [id number] bone health 12/04/23
valacyclovir 500 mg tablet 500 mg PO DAILY infection prevention 12/04/23
cholecalciferol (vitamin D3) 50 mcg (2,000 unit) tablet (Vitamin D3) 50 mcg PO DAILY 12/15/23
cyanocobalamin (vitamin B-12) 1,000 mcg tablet 1,000 mcg PO DAILY 04/28/25
docusate sodium 100 mg capsule (Colace) 100 mg PO DAILYPRN PRN constipation 04/28/25
esomeprazole magnesium 40 mg capsule,delayed release (Nexium) 40 mg PO DAILY 04/28/25
fluticasone propionate 93 mcg/actuation breath activated aerosol (Xhance) 1 spray intranasal BID 04/28/25
Review of Systems
-
A 12 point ROS was completed and negative except as noted: Yes
Physical Exam
Vital Signs
Vital Signs
Temp Pulse Resp BP Pulse Ox
97.8 F 79 15 156/96 90
04/28/25 07:38 04/28/25 07:54 04/28/25 07:54 04/28/25 07:54 04/28/25 08:13
Physical Exam
General: No Apparent Distress
HEENT: Atraumatic; No Oxygen
Respiratory: Clear
Cardiac: S1/S2 and Regular Rhythm; No Murmur or Rub
GI: Soft, Non Tender, Non Distended and Normal Bowel Sounds; No Organomegaly
Rectal: Deferred by Provider
Musculoskeletal: No Clubbing, No Cyanosis and No Edema
Skin: No Rash
Neuro: Nonfocal/grossly intact
Laboratory Results
-
04/28/25 08:12
04/28/25 08:12
Laboratory Results
Total Bilirubin 1.2 mg/dl (0.2-1.3) 04/28/25 08:12
AST 21 U/L (14-36) 04/28/25 08:12
ALT 16 U/L (0-35) 04/28/25 08:12
Alkaline Phosphatase 74 U/L (38-126) 04/28/25 08:12
Lipase 68 U/L (23-300) 04/28/25 08:12
Impression/Plan
-
RUQ US
1. Increased hepatic echogenicity most likely representing moderate fatty infiltration.
2. Cholelithiasis. Contracted gallbladder with diffuse wall thickening, no pericholecystic fluid. Chronic cholecystitis is a consideration.
3. Mild dilation of the common bile duct, indeterminate etiology.
1. Possible acute cholecystitis
-Patient have new onset of back/epigastric pain with some associated nausea and chills
-Right upper quadrant ultrasound showing cholelithiasis with wall thickening concerning for chronic cholecystitis
-LFTs/bilirubin within normal limit
-CBD is dilated to 9 mm although no clear visible filling defect on ultrasound, may require MRI MRCP. Alternatively can get HIDA scan as well
-General Surgery evaluation has been requested
-Maintain patient n.p.o. with IV hydration
-Start patient on empiric IV Rocephin and Flagyl although no overt signs of sepsis.
-Admit to Med[facility] floor for further evaluation
2. History of Crohn's disease
History of peptic ulcer disease
-Patient has been following up with [facility]
-Was tried on Stelara and Remicade in the past although has been taken off due to side effect. Currently off of any treatment and has been symptom-free from October 14
3. Constipation
-Patient feeling not able to pass any bowel movement
-Abdominal examination is benign with good bowel sound present
-Abdominal x-ray ordered
-Further imaging if patient continues to have persistent problem
4. Hyperlipidemia
-Maintain on home dose of atorvastatin
5. Depression/anxiety
-Continue on home dose of Wellbutrin
6. Gastroesophageal reflux disease
-Maintained on Nexium
DVT PPX - scd
Full code
Total time spent : 78 mins
I personally saw and examined the patient.
I have reviewed all diagnostic interpretations and treatment plans as written.
Time includes patient management by me, time spent at the patients bedside, time to review lab and imaging results, discussing patient care, documentation in the medical record, and time spent with the family or caregiver and discussing care plan
with RN/Consultants.
[2025-04-28 13:39] VITALS: BMI 30.5
[2025-04-28 13:40] VITALS: BP 143/75
[2025-04-28] MEDS: MORPHINE SULFATE 2 MG IV (14:09)
[2025-04-28] MEDS: FLAGYL 250 MG 50 IV ×2 (14:25→21:53)
[2025-04-28] MEDS: STERILE WATER FOR INJECTION 10 ML IV (15:14)
[2025-04-28] MEDS: ROCEPHIN 1000 MG IV (15:14)
[2025-04-28] MEDS: OMNIPAQUE 50 ML PO (16:52)
--- NOTE | 2025-04-28 17:05 | CON.GS ---
Medical History
-
Chief Complaint: Chest/epigastric abdominal pain, nausea
History of Present Illness:
Patient is a 69 yo F with a PMH of obesity, GERD/PUD, HLD, NIDDM, multiple issues with bilateral ankle/foot, nephrolithiasis, diverticulitis s/p partial colectomy with resultant diagnosis of Crohn's disease, and s/p . Ms. Ashford presents
with intermittent issues of chest and epigastric abdominal pain. She states that her symptoms began on Friday day with severe epigastric abdominal pain radiating down the midline of her abdomen and into her back. Associated nausea, but no episodes
of vomiting. Her symptoms improved but then recurred on Friday night. Her symptoms again improved, but then recurred on Friday evening prompting presentation to the ER on the morning of 04/28. No clear association of worsening pain with oral
intake. She denies any prior knowledge for attacks or as a relates to her gallbladder. She does report intermittent issues with RIGHT shoulder discomfort. No fevers or chills. She does report some pillar stools, but denies any jaundice or tea
colored urine. Family history notable for daughter postcholecystectomy. Currently, she states that her symptoms have resolved and is pain-free.
of note, she follows with GI physician down at [facility]. She was previously on Stelara and Remicade, however, she discontinued these medications back in 2022 after issues with side effects. She has had no recurrent attacks or issues as a relates
to her Crohn's disease. She receives routine colonoscopies. She was diagnosed as having peptic ulcers based on a screening endoscopy. She reports having a bowel movement daily, but having issues with constipation over the last several days.
Past Medical History
Past Medical History: GERD (PUD), Hypercholesterolemia and NIDDM
Past Surgical History: Bowel Resection (Partial colectomy), and Orthopedic (Bl foot/ankle)
Social History
Tobacco: Non-Smoker
Alcohol: Occasional
Drug: None
Living: With Family
Employment: Retired
Family History
Family History: Reviewed & Not Pertinent
Allergies / Home Medications
Allergy/AdvReac Type Severity Reaction Status Date / Time
.paper tape Allergy Unknown Uncoded 12/16/23 11:49
�Medication �Instructions �Recorded �Confirmed �Type
atorvastatin 10 mg tablet 10 mg PO DAILY High Cholesterol 12/04/23 04/28/25 History
bupropion HCl 150 mg 24 hr tablet, 150 mg PO DAILY Mental Health 12/04/23 04/28/25 History
extended release
denosumab 60 mg/mL subcutaneous 60 mg SC [id number] bone health 12/04/23 04/28/25 History
syringe (Prolia)
valacyclovir 500 mg tablet 500 mg PO DAILY infection 12/04/23 04/28/25 History
prevention
cholecalciferol (vitamin D3) 50 50 mcg PO DAILY 12/15/23 04/28/25 History
mcg (2,000 unit) tablet (Vitamin
D3)
cyanocobalamin (vitamin B-12) 1,000 mcg PO DAILY 04/28/25 04/28/25 History
1,000 mcg tablet
docusate sodium 100 mg capsule 100 mg PO DAILYPRN PRN constipation 04/28/25 04/28/25 History
(Colace)
esomeprazole magnesium 40 mg 40 mg PO DAILY 04/28/25 04/28/25 History
capsule,delayed release (Nexium)
fluticasone propionate 93 1 spray intranasal BID 04/28/25 04/28/25 History
mcg/actuation breath activated
aerosol (Xhance)
Review of Systems
-
A 10 point review of systems was completed, and was negative except as per HPI.
Physical Exam
Vital Signs
Temp Pulse Resp BP Pulse Ox
97.4 F 64 14 143/75 99
04/28/25 13:40 04/28/25 13:40 04/28/25 13:40 04/28/25 13:40 04/28/25 13:40
08/03/1604/28/25 04/29/25
06:59 06:59 06:59
Actual Weight 70.845 kg
Body Mass Index (BMI) 30.5
Lab Results
04/28/25 08:12
04/28/25 08:12
WBC 12.2 10^3/uL (4.8-10.8) H 04/28/25 08:12
Hgb 15.3 g/dL (12.0-16.0) 04/28/25 08:12
Hct 43.8 % (37.0-47.0) 04/28/25 08:12
Plt Count 250 10^3/uL (130-400) 04/28/25 08:12
Abs Immat Gran (auto) 0.1 10^3/uL (0-0.05) H 04/28/25 08:12
Neutrophils % 82.5 % (42.2-75.2) H 04/28/25 08:12
Physical Exam
General: Well Developed, Well Nourished and No Apparent Distress
HEENT: Normocephalic and Anicteric
Respiratory: Non Labored Respirations
Cardiac: Regular Rhythm
GI: Soft, Non Tender (Negative Butts's sign), Non Distended, Incisions (Well healed) and Obese
Musculoskeletal: No Edema
Skin: Warm and Dry
Neuro: Nonfocal/Grossly Intact
Data Reviewed
-
Ultrasound: Image Personally Visualized and interpreted and Report Reviewed by me
Labs: Labs Reviewed by me
Old Records: Reviewed
Assessment / Plan
-
Patient is a 69 yo F p/w intermittent epigastric and central abdominal pain radiating to the back
Difficult to tell with exact certainty but symptoms are most likely related to symptomatic cholelithiasis with possible choledocholithiasis given the location of her symptoms and dilation of her CBD visualized on ultrasound. Clinically she does not
appear to have acute cholecystitis with no pain or discomfort in the RUQ and negative Butts sign. Her ultrasound and prior CT scan demonstrate large volume of stone disease within the gallbladder with a more chronic inflammatory appearance.
Differential for cause of symptoms also includes constipation, Crohn's related flare, or PUD. Recommend that plan for a CT scan of the abdomen pelvis with oral and IV contrast to help rule out alternative pathology better determine timing and
necessity of her cholecystectomy. We discussed that she likely will need to have her gallbladder removed, however, timing is TBD (this admission versus outpatient). Of note, patient has a wedding tomorrow evening which she is hoping to attend.
Lengthy discussion had with the patient and her family. All questions answered.
-- CT abdomen/pelvis with PO and IV contrast
-- NPO, IVF
-- Abx: Ceftriaxone and Flagyl
-- PPI
[2025-04-28 23:48] VITALS: BP 123/55
[2025-04-29] VITALS (11 sets, daily range): BP systolic 132–155; BP diastolic 63–81
[2025-04-29] MEDS: NSS 1000 IV ×2 (05:18→21:47)
[2025-04-29] MEDS: FLAGYL 250 MG 50 IV ×3 (05:18→21:47)
[2025-04-29 08:07] LABS: Hematocrit 38.9 % (37.0-47.0); Hemoglobin 13.4 g/dL (12.0-16.0); Mean Corp Hgb Conc. 34.4 g/dL (33.0-37.0); Mean Corpuscular Volume 89.2 fL (81.0-99.0); Platelet Count 220 10^3/uL (130-400); Red Cell Dist. Width 12.5 % (11.5-14.5)
[2025-04-29 08:46] LABS: ALT (SGPT) 18 U/L (0-35); AST (SGOT) 22 U/L (14-36); Albumin 3.9 g/dl (3.5-5.0); Alkaline Phosphatase 72 U/L (38-126); Blood Urea Nitrogen 10 mg/dl (7-17); Calcium 8.7 mg/dl (8.4-10.2); Carbon Dioxide 24 mmol/L (22-30); Chloride 108 mmol/L (98-107); Estimated Creatinine Clearance 68 ml/min; Glucose 100 mg/dl (70-99); Potassium 4.1 mmol/L (3.5-5.1); Sodium 139 mmol/L (135-145); Total Protein 6.2 g/dl (6.3-8.2); eGFR > 60.00
[2025-04-29] MEDS: VALTREX 500 MG PO (08:46)
[2025-04-29] MEDS: PROTONIX 40 MG PO (08:46)
[2025-04-29] MEDS: WELLBUTRIN XL (24 hour extended release) 150 MG PO (08:46)
[2025-04-29] MEDS: VITAMIN D3 (cholecalciferol) 50 MCG PO (08:46)
[2025-04-29] MEDS: LIPITOR 10 MG PO (08:46)
--- NOTE | 2025-04-29 08:49 | W.PN.GS2 ---
Today's Communication / Plan
-
-- Laparoscopic cholecystectomy with cholangiogram
Assessment / Plan
-
Patient is a 69 yo F p/w likely symptomatic cholelithiasis and possible choledocholithiasis.
CT scan (04/28): edema and likely worsened inflammation surrounding a chronically inflamed gallbladder, continued dilation of the CBD without any clear evidence of choledocholithiasis
AVSS
Labs notable for normalized WBC, CMP pending
Benadryl history and pathophysiology of biliary and stone disease has been previously discussed. CT scan imaging was reviewed. Options for management were reviewed. Specifically, we discussed medical management and delayed surgical intervention
as an outpatient versus cholecystectomy during this admission. The pros and cons of both approaches was discussed. Specifically, we discussed recurrent attacks and issues versus logistical inconvenience with upfront cholecystectomy. We discussed
that either way she should have her gallbladder removed. Recommend and plan for cholecystectomy.
Plan for a laparoscopic cholecystectomy with possible cholangiogram. The procedure itself, as well as the risks, benefits, and alternatives was discussed. Specifically, we discussed the risk of bleeding, infection, injury to surrounding structures
(bowel, bile ducts), CBD injury, need for open procedure. Typical postprocedure recovery including pain management, activity restrictions, and the 10 to 20% risks of fluctuations in GI function were discussed. All questions answered. Consent
signed.
-- Laparoscopic cholecystectomy with cholangiogram
-- NPO, IVF
-- Abx: Ceftriaxone and Flagyl
Subjective Data
-
Date of Service: April 29, 2025
Denies any abdominal pain or discomfort. No nausea or vomiting. No fevers.
Objective Data
-
Intake and Output
04/28/25 04/29/25 04/30/25
06:59 06:59 06:59
Other:
Number of approximated MODERATE 6
amounts of urine
Vital Signs
Temp Pulse Resp BP Pulse Ox
98.2 F 67 16 135/76 97
04/29/25 07:30 04/29/25 07:30 04/29/25 07:30 04/29/25 07:30 04/29/25 07:30
Lab Results
04/29/25 07:29
04/29/25 07:29
Calcium 8.7 mg/dl (8.4-10.2) D 04/29/25 07:29
Total Bilirubin 1.1 mg/dl (0.2-1.3) 04/29/25 07:29
AST 22 U/L (14-36) 04/29/25 07:29
ALT 18 U/L (0-35) 04/29/25 07:29
Alkaline Phosphatase 72 U/L (38-126) 04/29/25 07:29
Total Protein 6.2 g/dl (6.3-8.2) L 04/29/25 07:29
Albumin 3.9 g/dl (3.5-5.0) 04/29/25 07:29
Physical Exam
-
Gen: NAD
Abd: soft, NT/ND, non-peritoneal
Patient has a koo catheter: No
Patient has a central line: No
--- NOTE | 2025-04-29 08:53 | W.SUR.PREOP ---
Pre-Operative Surgical Note
-
I have examined this patient prior to the performance of the scheduled procedure.
The patient's condition is unchanged from the time of the current History and
Physical and the patient is able to undergo the scheduled procedure.
--- NOTE | 2025-04-29 11:45 | W.IMMPOSTOP ---
Surgical Immed Post Op Note
-
Primary Surgeon: Rodo
Assisting Surgeon: None
Pre-op Diagnosis: Acute on chronic cholecystitis
Post-op Diagnosis: Acute on chronic cholecystitis
Procedure Performed: Laparoscopic cholecystectomy with cholangiogram
Anesthesia Type: General
Specimen / Cultures:
1. Gallbladder
Estimated Blood Loss: 3 cc
Complications: None
Operative Findings:
1. Scute edematous inflammation on chronic wall thickening and whitish appearing GB
2. Critical view
3. IOC negative
4. Artery clips, duct turner load stapler
--- NOTE | 2025-04-29 14:07 | W.PN.HOSP.TC ---
Today's Communication/Plan
-
Await GI evaluation
post-op care per GS
Assessment / Plan
Assessment / Plan
RUQ US
1. Increased hepatic echogenicity most likely representing moderate fatty infiltration.
2. Cholelithiasis. Contracted gallbladder with diffuse wall thickening, no pericholecystic fluid. Chronic cholecystitis is a consideration.
3. Mild dilation of the common bile duct, indeterminate etiology.
CT a/p
Cholelithiasis with gallbladder wall thickening and mucosal hyperenhancement. Findings are concerning for cholecystitis, possibly subacute/chronic. Further evaluation with HIDA scan may be considered.
There is mild dilation of the common bile duct, unchanged from same day ultrasound. Consider correlation with lab values for possible biliary obstruction.
There is a 1.3 cm segment of apparent focal wall thickening and luminal narrowing within the mid/distal sigmoid colon. Differential includes stricture in the setting of Crohn's disease although malignancy is possible. Consider colonoscopy for
further evaluation.
Colonic diverticulosis.

1. Acute cholecystitis
-Patient have new onset of back/epigastric pain with some associated nausea and chills
-Right upper quadrant ultrasound showing cholelithiasis with wall thickening concerning for chronic cholecystitis
-LFTs/bilirubin within normal limit
-CBD is dilated to 9 mm although no clear visible filling defect on ultrasound, may require MRI MRCP. Alternatively can get HIDA scan as well
-patient on empiric IV Rocephin and Flagyl although no overt signs of sepsis.
-CT abdomen pelvis report reviewed.
-Underwent uneventful left cholecystectomy by general surgery. Intraoperative cholangiogram ruled out any CBD stone
2. History of Crohn's disease
History of peptic ulcer disease
-Patient has been following up with [facility], GI group
-Was tried on Stelara and Remicade in the past although has been taken off due to side effect. Currently off of any treatment and has been symptom-free from October 14
3. Sigmoid colon stricture
-Possibly small segment of sigmoid colon stricture with wall thickening visible on the CT scan
-Gastroenterology consulted for further evaluation and possible need of colonoscopy
4. Hyperlipidemia
-Maintain on home dose of atorvastatin
5. Depression/anxiety
-Continue on home dose of Wellbutrin
6. Gastroesophageal reflux disease
-Maintained on Nexium
DVT PPX - scd
Full code
Anticipated Discharge: Within 24 hours
Subjective/Interval History
-
Date of Service: April 29, 2025
No new issues reported overnight
Denies of abdominal pain/nausea/vomiting
Objective Data
-
Labs:
Laboratory Results
04/29/25
07:29
WBC 9.7
Hgb 13.4
Hct 38.9
Plt Count 220
Sodium 139
Potassium 4.1
Chloride 108 H
Carbon Dioxide 24
BUN 10
Creatinine 0.7
Glucose 100 H
Calcium 8.7 D
Total Bilirubin 1.1
AST 22
ALT 18
Alkaline Phosphatase 72
Vital Signs:
Vital Signs
Temp Pulse Resp BP Pulse Ox
97.7 F 83 16 139/72 96
04/29/25 13:00 04/29/25 13:00 04/29/25 13:00 04/29/25 13:00 04/29/25 13:00
I&O
04/28/25 04/29/25 04/30/25
06:59 06:59 06:59
Intake Total 100 / 100
Balance 100 / 100
Review of Systems
-
Respiratory: Reports No Symptoms
Cardiac: Reports No Symptoms
Abdomen/GI: Reports No Symptoms
Physical Exam
-
General: No Apparent Distress and Comfortable
HEENT: Negative Oxygen
Respiratory: Clear to Auscultation
Cardiac: Regular Rhythm and S1/S2; Negative Murmur or Rub
GI: Soft and Nontender
Musculoskeletal: No Edema
Neuro: Awake, Alert, Oriented, No Motor Deficits and Nonfocal/Grossly Intact
Psych: Calm
--- NOTE | 2025-04-29 14:39 | PTCARENOTE ---
Patient returned from OR with 5 lap sites to abdomen CDI. No reports of pain, or nausea at this time. Family at bedside. Call miranda within reach.
[2025-04-29] MEDS: STERILE WATER FOR INJECTION 10 ML IV (14:54)
[2025-04-29] MEDS: ROCEPHIN 1000 MG IV (14:54)
--- NOTE | 2025-04-29 15:00 | CM ---
Patient seen bedside w/ daughter, Elif. Initial assessment completed. Patient is 69-year-old female with past medical history of Crohn's disease not on any biologic, history of recurrent UTI, bladder ulcer, peptic ulcer disease, hyperlipidemia,
depression/anxiety, obesity came to ER with new onset of back pain associated with nausea.
Laparoscopic cholecystectomy with cholangiogram today
Patient resides alone in a [place] community. Patient has a 2 story home, patient primarily resides on the first floor that has 2 bedrooms and 2 bathrooms. Patient is independent w/ ambulation, no device required. Independent w/ ADLs, no DME reported.
No SNF/HC hx reported.
Address, point of contact and insurance verified
PCP: Bryant Lewis
Pharmacy: [facility]
Patient requested for her daughter, Elif, to be added as a secondary contact. Updated Hayley/admissions
Plan: Home, no needs
--- NOTE | 2025-04-29 16:36 | CON.GI ---
Consultation
-
Date/Time Consultation Requested: 04/29/2025
Date/Time Consultation Performed: 04/29/2025
Requesting Provider:
Performing Provider:
Reason for Consultation: crohns
Medical History
Chief Complaint / HPI
Chief Complaint: acute cholecystitis, abdominal pain
History of Present Illness:
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
disease, hyperlipidemia, depression/anxiety, obesity, osteoporosis on Prolia presented to the emergency room yesterday with abdominal pain. She has a very complex past medical history. She had recurrent complicated diverticulitis and had a sigmoid
resection in [place] in 2015 where she was living at that time and then in December 2016 she was having abdominal pain and bowel changes and had extensive workup and was admitted at [facility] and then was diagnosed with Crohn's disease was initially
started on Remicade which she was on for about 3 years but had drug-induced psoriasis and had to come off of Remicade and then was started on Stelara which she was on for 3 years but then had multiple side effects including recurrent kidney stones
requiring procedures with Dr. Berry and also had a bladder ulcer and recurrent UTIs which were apparently thought to be related to Stelara so she has been off of it since July [address] Leon at [facility]. She says that Dr. Leon had
recommended she start Entyvio but patient had opted not to start it because she was afraid of more side effects from the drug. Her last colonoscopy was about 2 years ago and her last endoscopy was about a year and a half ago she had an endoscopy
initially about 2 years ago and was found to have ulcers and then was started on esomeprazole and had a repeat endoscopy she says that out of the 3 ulcers 2 had healed. She used to work in [employer] and was in [place] for about 45 years and is
now living in this area after [facility] close to her 2 daughters. She also is a survivor of 06/02 and was in the building at the time and her brother is a air chief marshal. She says that she also has been dealing with diarrhea alternating with
constipation for the past couple of years and her last bowel movement was on Friday, no rectal bleeding but she had been having constipation for the past couple of days. on Friday she had abdominal pain and nausea and she initially thought it was
food poisoning and then subsequently pain improved but on Friday she started having pain again she called her daughter on and she told her to come into the emergency room and since has been diagnosed with acute calculus cholecystitis and
she had laparoscopic cholecystectomy with IOC today with Dr. Koehler. Her LFTs were normal. IOC was negative for CBD stones. She also denies any fevers or chills. She has been passing flatus since admission except for today post op not passed
flatus yet. She also has been passing a small amount of stool yesterday. She has not really been using any laxatives or fiber for her constipation as outpatient.
Past Medical History
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
hyperlipidemia, depression/anxiety, obesity, osteoporosis on Prolia)
Past Surgical History: Other (Colon sigmoid resection in April 2016 for recurrent complicated diverticulitis, , sinus surgery 11/2024, dental surgery, foot and ankle surgery, 11/2023 Cystoscopy, right ureteroscopy and renoscopy, laser
lithotripsy of stone and stone extraction, stent placement. )
Social History
Tobacco: Non-Smoker
Alcohol: Occasional
Drug: None
Living: With Family
Employment: Retired
Family History
Family History: Other (No family history of Crohn's disease or colon cancer. Her daughter has history of diverticulitis)
Allergies / Home Medications
Allergy/AdvReac Type Severity Reaction Status Date / Time
.paper tape Allergy Unknown Uncoded 12/16/23 11:49
�Medication �Instructions �Recorded
atorvastatin 10 mg tablet 10 mg PO DAILY High Cholesterol 12/04/23
bupropion HCl 150 mg 24 hr tablet, 150 mg PO DAILY Mental Health 12/04/23
extended release
denosumab 60 mg/mL subcutaneous 60 mg SC [id number] bone health 12/04/23
syringe (Prolia)
valacyclovir 500 mg tablet 500 mg PO DAILY infection 12/04/23
prevention
cholecalciferol (vitamin D3) 50 50 mcg PO DAILY Supplement 12/15/23
mcg (2,000 unit) tablet (Vitamin
D3)
cyanocobalamin (vitamin B-12) 1,000 mcg PO DAILY Supplement 04/28/25
1,000 mcg tablet
docusate sodium 100 mg capsule 100 mg PO DAILYPRN PRN constipation 04/28/25
(Colace)
esomeprazole magnesium 40 mg 40 mg PO DAILY Gastrointestinal 04/28/25
capsule,delayed release (Nexium) Issue
fluticasone propionate 93 1 spray intranasal BID Allergies 04/28/25
mcg/actuation breath activated
aerosol (Xhance)
oxycodone 5 mg tablet 5 mg PO Q4HPRN PRN 04/29/25
breakthrough/severe pain #10 tabs
Review of Systems
-
All other systems: A 12 pt ROS was Negative except as stated above in HPI
Vital Signs
Temp Pulse Resp BP Pulse Ox
97.8 F 90 18 155/77 95
04/29/25 15:00 04/29/25 15:00 04/29/25 15:00 04/29/25 15:00 04/29/25 15:00
Physical Exam
Exam
General: Well Nourished and No Apparent Distress
HEENT: Normocephalic
Respiratory: Clear
Cardiac: S1/S2 and Regular Rhythm
GI: Other (Soft, nontender, nondistended, hypoactive bowel sounds)
Musculoskeletal: No Clubbing
Skin: Warm
Neuro: Awake, Alert and Oriented
Psych: Calm
Results
WBC 9.7 10^3/uL (4.8-10.8) 04/29/25 07:29
Hgb 13.4 g/dL (12.0-16.0) 04/29/25 07:
Hct 38.9 % (37.0-47.0) 04/29/25 07:
MCV 89.2 fL (81.0-99.0) 04/29/25 07:
Plt Count 220 10^3/uL (130-400) 04/29/25 07:
Absolute Neuts (auto) 10.0 10^3/uL (1.4-6.5) H 04/28/25 08:12
Sodium 139 mmol/L (135-145) 04/29/25 07:
Potassium 4.1 mmol/L (3.5-5.1) 04/29/25 07:29
Chloride 108 mmol/L (98-107) H 04/29/25 07:29
Carbon Dioxide 24 mmol/L (22-30) 04/29/25 07:29
BUN 10 mg/dl (7-17) 04/29/25 07:29
Creatinine 0.7 mg/dL (0.6-1.0) 04/29/25 07:
Calcium 8.7 mg/dl (8.4-10.2) D 04/29/25 07:29
Total Bilirubin 1.1 mg/dl (0.2-1.3) 04/29/25 07:29
AST 22 U/L (14-36) 04/29/25 07:29
ALT 18 U/L (0-35) 04/29/25 07:29
Alkaline Phosphatase 72 U/L (38-126) 04/29/25 07:29
Lipase 68 U/L (23-300) 04/28/25 08:12
Diagnostic Image Results:
04/28/2025 Ct abdomen and pelvis
IMPRESSION:
Cholelithiasis with gallbladder wall thickening and mucosal hyperenhancement. Findings are concerning for cholecystitis, possibly subacute/chronic. Further evaluation with HIDA scan may be considered.
There is mild dilation of the common bile duct, unchanged from same day ultrasound. Consider correlation with lab values for possible biliary obstruction.
There is a 1.3 cm segment of apparent focal wall thickening and luminal narrowing within the mid/distal sigmoid colon. Differential includes stricture in the setting of Crohn's disease although malignancy is possible. Consider colonoscopy for
further evaluation.
Colonic diverticulosis.
04/28/2025 abdomen US
IMPRESSION:
1. Increased hepatic echogenicity most likely representing moderate fatty infiltration.
2. Cholelithiasis. Contracted gallbladder with diffuse wall thickening, no pericholecystic fluid. Chronic cholecystitis is a consideration.
3. Mild dilation of the common bile duct, indeterminate etiology.
Prior GI Procedures:
EGD: Initial endoscopy about 2 years ago at [facility] with Dr. Leon was noted to have gastric ulcers and then had a repeat endoscopy about 3 to 4 months later and she says that 2 out of the 3 ulcers had healed
Colonoscopy: About 2 years ago at [facility] with Dr. Leon
Assessment / Plan
-
1. Acute calculus cholecystitis status post cholecystectomy with intraoperative IOC which was negative for CBD stones. Her lipase and LFTs are normal. Postop care per surgery, tolerating clear liquids.
2. History of PUD and has been on esomeprazole as outpatient and is currently on pantoprazole, continue PPI. She will follow-up with Dr. Leon after DC. she is due for repeat endoscopy to check for healing of prior ulcers. Avoid NSAIDs.
3. 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
thought to be related to Stelara so was discontinued in July 2023 and was recommended to start Entyvio but patient opted to hold off. I strongly encouraged her to follow-up with Dr. Leon at [facility] after DC to have a repeat colonoscopy to
assess disease activity and as recommended by her to start Entyvio to prevent complications especially stricturing disease
4. She does have chronic diarrhea alternating with constipation but mostly recently constipated. On CT she was noted to have possible sigmoid narrowing which could be related to possible anastomotic stricture since she had complicated
diverticulitis requiring sigmoidectomy in 2016 or could be related to stricture from Crohn's evidence but no bowel obstruction was noted. She currently has no symptoms of acute Crohn's flare so will hold off on starting her on steroids. she will
need a colonoscopy which she is going to follow-up with for after DC. In fact she had an appointment today with her which had to be canceled so she is rescheduled for June. started her on MiraLAX daily and I encouraged her to stay on it
as outpatient also and also would recommend fiber supplements as tolerated. I will also give her an enema today. Her obstruction series was unremarkable with no evidence of bowel obstruction.
Total Time Spent with Patient (in minutes): 60 minutes
Data Reviewed
-
CT Scan: Report Reviewed by me
Ultrasound: Report Reviewed by me
-
-
Thank you for consultation and allowing me to participate in the patient's care. Please call the conductor/engineer GI physician during the after hours with any questions or concerns.
[2025-04-29] MEDS: LOVENOX 40 MG SC (17:22)
--- NOTE | 2025-04-29 17:37 | PTCARENOTE ---
Enema and laxative ordered stat by GI. Patient refusing admin at this time due to visitor present. Patient agreeable to take tonight.
[2025-04-29] MEDS: MILK OF MAGNESIA 30 ML PO (20:32)
[2025-04-29] MEDS: FLEET MINERAL OIL ENEMA 133 ML RECTAL (20:32)
[2025-04-29] MEDS: TYLENOL 650 MG PO (21:56)
[2025-04-30 03:16] VITALS: BP 143/71
[2025-04-30] MEDS: FLAGYL 250 MG 50 IV (05:32)
[2025-04-30 07:54] VITALS: BP 140/68
[2025-04-30 08:58] LABS: Hematocrit 39.4 % (37.0-47.0); Hemoglobin 14.0 g/dL (12.0-16.0); Mean Corp Hgb Conc. 35.5 g/dL (33.0-37.0); Mean Corpuscular Volume 87.2 fL (81.0-99.0); Platelet Count 227 10^3/uL (130-400); Red Cell Dist. Width 12.6 % (11.5-14.5)
[2025-04-30 09:00] LABS: Glycohemoglobin (HgbA1c) 6.8 % (4.0-5.6)
[2025-04-30] MEDS: LIPITOR 10 MG PO (09:13)
[2025-04-30] MEDS: VITAMIN D3 (cholecalciferol) 50 MCG PO (09:13)
[2025-04-30] MEDS: VALTREX 500 MG PO (09:13)
[2025-04-30] MEDS: PROTONIX 40 MG PO (09:13)
[2025-04-30] MEDS: MIRALAX 17 GRAMS PO (09:13)
[2025-04-30] MEDS: WELLBUTRIN XL (24 hour extended release) 150 MG PO (09:14)
[2025-04-30 09:21] LABS: ALT (SGPT) 39 U/L (0-35); AST (SGOT) 40 U/L (14-36); Albumin 4.2 g/dl (3.5-5.0); Alkaline Phosphatase 82 U/L (38-126); Blood Urea Nitrogen 11 mg/dl (7-17); Calcium 8.8 mg/dl (8.4-10.2); Carbon Dioxide 25 mmol/L (22-30); Chloride 108 mmol/L (98-107); Estimated Creatinine Clearance 68 ml/min; Glucose 136 mg/dl (70-99); Potassium 3.8 mmol/L (3.5-5.1); Sodium 141 mmol/L (135-145); Total Protein 6.6 g/dl (6.3-8.2); eGFR > 60.00
--- NOTE | 2025-04-30 11:31 | W.PN.GS2 ---
Today's Communication / Plan
-
dispo planning
Assessment / Plan
-
Patient is a 69 yo F p/w likely symptomatic cholelithiasis and possible choledocholithiasis.
CT scan (04/28): edema and likely worsened inflammation surrounding a chronically inflamed gallbladder, continued dilation of the CBD without any clear evidence of choledocholithiasis. Narrowing a prior sigmoid anastamosis
Obstruction series (04/30) without obstruction, prior administered contrast beyond point of narrowing
AVSS
Reactive leukocytosis
Tolerating diet, passing flatus/stools
Plan:
Diet as tolerated
Analgesics/antiemetics
Multiple dietary concerns, recommend nutritional follow up as OP
No further abx needed on d/c from surgical standpoint
d/c instructions updated
Ok for d/c from surgical standpoint
Subjective Data
-
Date of Service: April 30, 2025
Pt seen and examined at bedside with Dr. Godfrey. Denies n/v. Tolerating diet. Passed a small BM and flatus. Some tenderness to upper abdominal incision.
Objective Data
-
Intake and Output
04/29/25 04/30/25 05/01/25
06:59 06:59 06:59
Intake Total 1100 / 1100
Balance 1100 / 1100
Intake:
IV fluids (Total) 1000 / 1000
Normosol 100 / 100
IV piggybacks 100 / 100
Other:
Number of approximated MODERATE 6 3
amounts of urine
Number of approximated LARGE 1
amounts of urine
Vital Signs
Temp Pulse Resp BP Pulse Ox
98 F 70 18 140/68 98
04/30/25 07:54 04/30/25 07:54 04/30/25 07:54 04/30/25 07:54 04/30/25 07:54
Lab Results
04/30/25 08:50
04/30/25 08:50
Calcium 8.8 mg/dl (8.4-10.2) 04/30/25 08:50
Total Bilirubin 0.8 mg/dl (0.2-1.3) 04/30/25 08:50
AST 40 U/L (14-36) H 04/30/25 08:50
ALT 39 U/L (0-35) H 04/30/25 08:50
Alkaline Phosphatase 82 U/L (38-126) 04/30/25 08:50
Total Protein 6.6 g/dl (6.3-8.2) 04/30/25 08:50
Albumin 4.2 g/dl (3.5-5.0) 04/30/25 08:50
Physical Exam
-
Gen: NAD, tearful
Abd: soft, ND, mild tenderness to upper abdominal incision
Incisions well approximated with intact glue
Patient has a koo catheter: No
Patient has a central line: No
--- NOTE | 2025-04-30 12:35 | CM ---
Patient seen at bedside in [facility]. Patient for discharge home today with daughter coming to go home with her. Patient completed IMM and signed form placed on chart. Patient asking about showers. CM updated nursing. CM will continue to follow for
discharge planning needs.
Plan; home with no needs
[2025-04-30 12:45] VITALS: BP 142/72
--- NOTE | 2025-04-30 13:23 | W.PN.HOSP.TC ---
Today's Communication/Plan
-
d/c home
Assessment / Plan
Assessment / Plan
RUQ US
1. Increased hepatic echogenicity most likely representing moderate fatty infiltration.
2. Cholelithiasis. Contracted gallbladder with diffuse wall thickening, no pericholecystic fluid. Chronic cholecystitis is a consideration.
3. Mild dilation of the common bile duct, indeterminate etiology.
CT a/p
Cholelithiasis with gallbladder wall thickening and mucosal hyperenhancement. Findings are concerning for cholecystitis, possibly subacute/chronic. Further evaluation with HIDA scan may be considered.
There is mild dilation of the common bile duct, unchanged from same day ultrasound. Consider correlation with lab values for possible biliary obstruction.
There is a 1.3 cm segment of apparent focal wall thickening and luminal narrowing within the mid/distal sigmoid colon. Differential includes stricture in the setting of Crohn's disease although malignancy is possible. Consider colonoscopy for
further evaluation.
Colonic diverticulosis.

1. Acute cholecystitis
-Patient have new onset of back/epigastric pain with some associated nausea and chills
-Right upper quadrant ultrasound showing cholelithiasis with wall thickening concerning for chronic cholecystitis
-LFTs/bilirubin within normal limit
-CBD is dilated to 9 mm although no clear visible filling defect on ultrasound, may require MRI MRCP. Alternatively can get HIDA scan as well
-patient on empiric IV Rocephin and Flagyl although no overt signs of sepsis.
-CT abdomen pelvis report reviewed.
-Underwent uneventful left cholecystectomy by general surgery. Intraoperative cholangiogram ruled out any CBD stone
2. History of Crohn's disease
History of peptic ulcer disease
-Patient has been following up with [facility], GI group
-Was tried on Stelara and Remicade in the past although has been taken off due to side effect. Currently off of any treatment and has been symptom-free from October 14
3. Sigmoid colon stricture
-Possibly small segment of sigmoid colon stricture with wall thickening visible on the CT scan
- Gastroenterology evaluated and did an obstructive series which did not show any acute issues
- As patient is currently symptom-free patient has been cleared to discharge with follow-up with primary GI on outpatient basis. Patient is planned to f/u GI in June.
4. Hyperlipidemia
-Maintain on home dose of atorvastatin
5. Depression/anxiety
-Continue on home dose of Wellbutrin
6. Gastroesophageal reflux disease
-Maintained on Nexium
7. Type 2 diabetes mellitus
- Hemoglobin A1c of 6.8.
- Diet/weight loss education provided at bedside
- Discussed therapy options and patient willing to try metformin. Patient is planned to follow-up with primary care physician to discuss alternative therapies as well
- Patient interested in diet changes, recommended to follow-up with welfare service aide postdischarge.
DVT PPX - scd
Full code
More than 30 minutes spent in discharge including
Final examination of the patient
Summarizing hospital stay
Instructions for continuing care to all relevant caregivers
Preparation of discharge records, prescriptions, and referral forms
Total time spent (in minutes): 39 mins
Anticipated Discharge: Today
Subjective/Interval History
-
Date of Service: April 30, 2025
Patient is tearful in the morning after being informed that have elevated hemoglobin A1c
Denies any abdominal pain/nausea/vomiting
Objective Data
-
Labs:
Laboratory Results
04/30/25
08:50
WBC 16.0 H
Hgb 14.0
Hct 39.4
Plt Count 227
Sodium 141
Potassium 3.8
Chloride 108 H
Carbon Dioxide 25
BUN 11
Creatinine 0.7
Glucose 136 H
Calcium 8.8
Total Bilirubin 0.8
AST 40 H
ALT 39 H
Alkaline Phosphatase 82
Vital Signs:
Vital Signs
Temp Pulse Resp BP Pulse Ox
98 F 70 18 140/68 98
04/30/25 07:54 04/30/25 07:54 04/30/25 07:54 04/30/25 07:54 04/30/25 07:54
I&O
04/29/25 04/30/25 05/01/25
06:59 06:59 06:59
Intake Total 1100 / 1100
Balance 1100 / 1100
Review of Systems
-
Respiratory: Reports No Symptoms
Cardiac: Reports No Symptoms
Abdomen/GI: Denies Abdominal Pain, Nausea or Vomiting
Physical Exam
-
General: Negative Obese
HEENT: Negative Oxygen
Neuro: Awake, Alert and Oriented
Psych: Anxious
--- NOTE | 2025-04-30 13:28 | W.PN.GI.CBS2 ---
Today's Communication / Plan
-
Outpatient GI follow-up at [facility]
Assessment / Plan
-
1. Acute calculus cholecystitis status post cholecystectomy with intraoperative IOC which was negative for CBD stones. Her lipase and LFTs are normal. Postop care per surgery, tolerating clear liquids.
2. History of PUD and has been on esomeprazole as outpatient and is currently on pantoprazole, continue PPI. She will follow-up with Dr. Leon after DC. she is due for repeat endoscopy to check for healing of prior ulcers. Avoid NSAIDs.
3. 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
thought to be related to Stelara so was discontinued in July 2023 and was recommended to start Entyvio but patient opted to hold off. I strongly encouraged her to follow-up with Dr. Leon at [facility] after DC to have a repeat colonoscopy to
assess disease activity and as recommended by her to start Entyvio to prevent complications especially stricturing disease
4. She does have chronic diarrhea alternating with constipation but mostly recently constipated. On CT she was noted to have possible sigmoid narrowing which could be related to possible anastomotic stricture since she had complicated
diverticulitis requiring sigmoidectomy in 2016 or could be related to stricture from Crohn's evidence but no bowel obstruction was noted. She currently has no symptoms of acute Crohn's flare so will hold off on starting her on steroids. she will
need a colonoscopy which she is going to follow-up with for after DC.
plan
Patient had BMs after laxative/enema. Denies any obstructive symptoms . Repeat x-ray this a.m no henry obstruction.
Case discussed with medical team. Will recommend follow-up with her GI at [facility]. She needs outpatient colonoscopy/maintenance therapy for Crohn's disease.
Total Time Spent with Patient (in minutes): 35
Subjective
Subjective
Date of Service: April 30, 2025
Had small BMs after laxative/enema. Denies any abdominal pain/nausea/vomiting
Objective
Data Reviewed
Laboratory Data:
Laboratory Results
04/30/25 08:50
04/30/25 08:50
Laboratory Results
Total Bilirubin 0.8 mg/dl (0.2-1.3) 04/30/25 08:50
AST 40 U/L (14-36) H 04/30/25 08:50
ALT 39 U/L (0-35) H 04/30/25 08:50
Alkaline Phosphatase 82 U/L (38-126) 04/30/25 08:50
Lipase 68 U/L (23-300) 04/28/25 08:12
Vital Signs and I&O:
Vital Signs
Temp Pulse Resp BP Pulse Ox
98 F 70 18 140/68 98
04/30/25 07:54 04/30/25 07:54 04/30/25 07:54 04/30/25 07:54 04/30/25 07:54
I&O
04/29/25 04/30/25 05/01/25
06:59 06:59 06:59
Intake Total 1100 / 1100
Balance 1100 / 1100
Physical Exam
Physical Exam
GI: Soft, Non Distended and Non Tender
--- NOTE | 2025-05-01 14:44 | W.DCSUMMARY ---
Discharge Summary
Discharge Data
Date of Admission: 04/28/25
Date of Discharge: 04/30/25
-
Pending Results: No
Hospital Course
Discharging Physician : Dr Yoel Epstein
Disposition : Home
Primary care physician : Dr Bryant Lewis
Principal Discharge diagnosis :
Acute cholecystitis
Sigmoid colon stricture
Type 2 diabetes mellitus -new diagnosis
Chronic Discharge diagnosis :
History of Crohn's disease
History of peptic ulcer disease
Hyperlipidemia
Depression/anxiety
Gastroesophageal reflux disease
Hospital Course :
Patient is a 69-year-old female with admission past medical history came for with new onset of back pain associated with some nausea and chills. In ER imaging showing patient having changes of chronic cholecystitis. Lab work did not show any
abnormality with liver enzymes or any signs of sepsis. General surgery was involved in care and patient had follow-up CT abdomen pelvis confirming the similar findings. Patient was taken to the OR by general surgery and ended up having uneventful
laparoscopic cholecystectomy. Intraoperative cholangiogram ruled out any CBD stone. Postprocedure patient was cleared for discharge from surgery perspective
Patient also incidentally was found to having sigmoid colonic minimal stricture. GI evaluated patient and patient had a follow-up small bowel obstructive series which did not show any obstruction. Patient would benefit with further evaluation of
the area with colonoscopy which patient is planned to have in June with outpatient primary religion professor at [facility].
Patient also diagnosed to be new diabetic with hemoglobin A1c elevated to 6.8. Diet/lifestyle medication patient were discussed and patient was started on metformin. Patient is planned to follow-up with primary care physician for further
discussion of management of new diabetes.
Important imaging findings :
None
Procedure findings :
None
Discharge Plan
-
Patient Disposition: Home (Routine Discharge)
Discharge Diagnosis/Procedures: Laparoscopic cholecystectomy with cholangiogram
Condition: Good
Diet: As tolerated and Low Residue
Additional Diets: If you have loose stools after surgery, switch to a low fat diet
Activity: No strenuous activity
Additional Activity: Do not lift over 20lbs for the next 2-3 weeks
Driving Restrictions: No driving for 24 hours
Bathing Restrictions: OK to Shower
Wound Care: Allow the glue to flake off your incisions on its own over the next 2-3 weeks. Do not swim during this time. Keep incision clean and dry. Use ice to the abdomen to reduce any bruising or swelling.
Activity Restrictions/Additional Instructions:
Call your surgeon if you have nausea with vomiting, worsening abdominal pain or a fever >100.5
Referrals:
Bryant Lewis MD [Family Provider, Internal Medicine]
Adria Koehler MD [Active, Surgical] - in two to four weeks
Natasha Watkins [Dietitian]
Referral Note: [facility]
Prescriptions:
New
acetaminophen [acetaminophen] 325 mg tablet
650 mg PO Q4HPRN PRN (Reason: mild pain) Qty: 1 0RF
ibuprofen 200 mg tablet
400 - 600 mg PO Q6HPRN PRN (Reason: moderate pain) Qty: 1 0RF
oxycodone 5 mg tablet
5 mg PO Q4HPRN PRN (Reason: breakthrough/severe pain) Qty: 10 0RF
metformin 500 mg tablet
500 mg PO BID Qty: 30 0RF
Continued
valacyclovir 500 mg Tablet
500 mg PO DAILY
Prolia 60 mg/mL Syringe
60 mg SC [id number]
atorvastatin 10 mg tablet
10 mg PO DAILY
bupropion HCl 150 mg tablet extended release 24 hr
150 mg PO DAILY
cholecalciferol (vitamin D3) [Vitamin D3] 50 mcg (2,000 unit) Tablet
50 mcg PO DAILY
esomeprazole magnesium [Nexium] 40 mg Capsule,Delayed Release(Dr/Ec)
40 mg PO DAILY
docusate sodium [Colace] 100 mg Capsule
100 mg PO DAILYPRN PRN (Reason: constipation)
Xhance 93 mcg/actuation Aerosol Breath Activated
1 spray INTRANASAL BID
cyanocobalamin (vitamin B-12) 1,000 mcg Tablet
1,000 mcg PO DAILY
Discharge Orders:
Discharge Patient (As Directed); Ordered 04/30/25
Ordered By: Yoel Epstein
Discharge Date and Time
Discharge Date/Time: 04/30/25 13:17
Print Language: KINYARWANDA
== END 2025-04-30 13:17 | disposition home or self-care (01) ==
LOC: PACU 12:42
PROVIDERS: ATTENDING PHYSICIAN Hospitalist; CONSULT PHYSICIAN Internal Medicine Gastroenterology; CONSULT PHYSICIAN Surgery; EMERGENCY PHYSICIAN Emergency Medicine; FAMILY PHYSICIAN Internal Medicine
DX: K80.00 Calculus of gallbladder with acute cholecystitis without obstruction (principal); K76.0 Fatty (change of) liver, not elsewhere classified
CPT/HCPCS: 47563; 74018; 74022; 74177; 74300; 76000; 76700; 80053; 81003; 81015; 83036; 83690; 85025; 85027; 88304; 93005; 96374; 96375; 96376; 99285; A4300; Q9967

== ENCOUNTER → 2025-07-29 10:29 | Outpatient (REF) | payer BC, SELFPAY ==
[2025-07-29 13:35] LABS: ALT (SGPT) 22 U/L (0-35); AST (SGOT) 26 U/L (14-36); Albumin 4.4 g/dl (3.5-5.0); Alkaline Phosphatase 71 U/L (38-126); Blood Urea Nitrogen 20 mg/dl (7-17); Calcium 9.8 mg/dl (8.4-10.2); Carbon Dioxide 26 mmol/L (22-30); Chloride 103 mmol/L (98-107); Glucose 101 mg/dl (70-99); Potassium 4.7 mmol/L (3.5-5.1); Sodium 138 mmol/L (135-145); Total Protein 6.8 g/dl (6.3-8.2); eGFR > 60.00
== END ==
LOC: HWRAD 10:29
PROVIDERS: ATTENDING PHYSICIAN Internal Medicine Rheumatology; FAMILY PHYSICIAN Internal Medicine; REFERRING PHYSICIAN Obstetrics & Gynecology
DX: M81.0 Age-related osteoporosis without current pathological fracture (principal); M85.89 Other specified disorders of bone density and structure, multiple sites; Z13.820 Encounter for screening for osteoporosis
CPT/HCPCS: 36415; 80053